=== PATIENT | male | born 1935 | race Caucasian/White ===

== ENCOUNTER 2021-10-19 14:59 | Inpatient (IN) | payer OTHER ==
[2021-10-19] MEDS ORDERED: SODIUM CHLORIDE 2,041 ML IV ONE (16:04)
[2021-10-19 16:53] LABS: BASO % 0.7 % (0-2.0); EOS % 5.2 % (0-4.5); HEMATOCRIT 28.4 % (35.4-49); HEMOGLOBIN 9.7 GM/dL (11.7-16.9); LYMPH % 25.1 % (8-40); MCH 32.2 pg (25.7-33.7); MCHC 34.1 g/dl (32.0-35.9); MEAN CELL VOLUME 94.4 fl (80-96); MEAN PLT VOLUME 8.7 fl (7.5-11.1); MONO % 8.2 % (3.8-10.2); NEUT % 60.8 % (42.8-82.8); PLATELET COUNT 222 10^3/uL (134-434); RDW 14.8 % (11.9-15.9); WHITE BLOOD COUNT 3.7 K/mm3 (4.0-10.0)
[2021-10-19 17:14] LABS: BLOOD UREA NITROGEN 19.1 mg/dL (7-18); CALCIUM 8.5 mg/dL (8.5-10.1)
[2021-10-19 17:18] LABS: CREATININE 1.2 mg/dL (0.55-1.3)
[2021-10-19 17:19] LABS: BILIRUBIN,TOTAL 0.5 mg/dL (0.2-1); TOT PROT 7.1 g/dl (6.4-8.2)
[2021-10-19 17:49] LABS: PH,URINE 5.5 (5.0-8.0); URINE APPEARANCE CLEAR; URINE BILIRUBIN NEGATIVE (NEGATIVE); URINE COLOR YELLOW; URINE GLUCOSE (UA) NEGATIVE (NEGATIVE); URINE KETONE NEGATIVE (NEGATIVE); URINE LEUK ESTERASE NEGATIVE (NEGATIVE); URINE NITRITE NEGATIVE (NEGATIVE); URINE PROTEIN NEGATIVE (NEGATIVE); URINE UROBILINOGEN 0.2 mg/dL (0.2-1.0)
[2021-10-19] MEDS ORDERED: IPRATROPIUM/ALBUTEROL (COMBIVENT) RESPIMAT 20-100 MCG IH PRN (21:45)
[2021-10-19] MEDS ORDERED: levETIRAcetam XR 750 MG TAB PO SCH (22:00)
[2021-10-19] MEDS ORDERED: ATORVASTATIN CA 40 MG TABLET (FP) ONE (23:43)
[2021-10-19] MEDS ORDERED: QUEtiapine FUMARATE 25 MG TABLET ONE (23:43)
[2021-10-20] MEDS: ATORVASTATIN CA 40 MG TABLET (FP) PO SCH (00:30)
[2021-10-20] MEDS: QUEtiapine FUMARATE 25 MG TABLET PO SCH ×2 (00:31→10:15)
[2021-10-20] MEDS ORDERED: levETIRAcetam 500 MG/5 ML INJECTION VIAL IVPB ONE ×3 (01:12→09:33)
[2021-10-20] MEDS ORDERED: HEPARIN NA (PORCINE) 5,000 UNITS/ML 1ML VIAL ONE (05:36)
[2021-10-20] MEDS: HEPARIN NA (PORCINE) 5,000 UNITS/ML 1ML VIAL SQ SCH ×2 (06:08→19:28)
[2021-10-20] MEDS ORDERED: TAMSULOSIN HCL 0.4 MG CAP ONE (08:07)
[2021-10-20 08:15] LABS: BASO % 0.6 % (0-2.0); HEMATOCRIT 30.7 % (35.4-49); HEMOGLOBIN 10.3 GM/dL (11.7-16.9); LYMPH % 16.3 % (8-40); MCH 31.9 pg (25.7-33.7); MCHC 33.5 g/dl (32.0-35.9); MEAN CELL VOLUME 95.2 fl (80-96); MEAN PLT VOLUME 8.7 fl (7.5-11.1); MONO % 5.8 % (3.8-10.2); NEUT % 74.3 % (42.8-82.8); PLATELET COUNT 245 10^3/uL (134-434); RBC 3.23 M/mm3 (4.00-5.60); WHITE BLOOD COUNT 5.2 K/mm3 (4.0-10.0)
[2021-10-20 08:21] LABS: INR 1.2 (0.83-1.09); PROTHROMBIN TIME (PATIENT) 13.8 SEC (9.7-13.0)
[2021-10-20 08:24] LABS: ACTIVATED PTT 33.8 SECONDS (25.2-36.5)
[2021-10-20] MEDS ORDERED: TAMSULOSIN HCL 0.4 MG CAP PO SCH (08:30)
[2021-10-20 08:31] LABS: BLOOD UREA NITROGEN 17.4 mg/dL (7-18)
[2021-10-20 08:34] LABS: CREATININE 1.2 mg/dL (0.55-1.3)
[2021-10-20] MEDS: levETIRAcetam 500 MG/5 ML INJECTION VIAL IVPB SCH (09:38)
[2021-10-20] MEDS ORDERED: QUEtiapine FUMARATE 25 MG TABLET ONE (09:51)
[2021-10-20] MEDS ORDERED: CITALOPRAM HYDROBROMIDE 10 MG TABLET ONE (09:51)
[2021-10-20] MEDS ORDERED: amLODIPine BESYLATE 5 MG TABLET (FP) ONE (09:51)
[2021-10-20] MEDS ORDERED: amLODIPine BESYLATE 5 MG TABLET (FP) PO SCH (10:00)
[2021-10-20] MEDS ORDERED: CITALOPRAM HYDROBROMIDE 10 MG TABLET PO SCH (10:00)
[2021-10-20] MEDS ORDERED: FINASTERIDE 5 MG TABLET (FP) PO SCH (10:00)
[2021-10-21] MEDS ORDERED: ATORVASTATIN CA 20 MG TABLET (FP) ONE (00:30)
[2021-10-21] MEDS ORDERED: levETIRAcetam 500 MG/5 ML INJECTION VIAL IVPB ONE (00:30)
[2021-10-21] MEDS ORDERED: HEPARIN NA (PORCINE) 5,000 UNITS/ML 1ML VIAL ONE (00:31)
[2021-10-21] MEDS ORDERED: QUEtiapine FUMARATE 25 MG TABLET ONE (00:31)
[2021-10-21] MEDS: ATORVASTATIN CA 40 MG TABLET (FP) PO SCH ×2 (00:45→22:02)
[2021-10-21] MEDS: HEPARIN NA (PORCINE) 5,000 UNITS/ML 1ML VIAL SQ SCH ×4 (00:45→22:02)
[2021-10-21] MEDS: levETIRAcetam 500 MG/5 ML INJECTION VIAL IVPB SCH (00:45)
[2021-10-21] MEDS: QUEtiapine FUMARATE 25 MG TABLET PO SCH ×3 (00:46→22:02)
[2021-10-21 02:53] VITALS: BMI 21.3
[2021-10-21] MEDS ORDERED: IPRATROPIUM/ALBUTEROL (COMBIVENT) RESPIMAT 20-100 MCG IH PRN (07:29)
[2021-10-21] MEDS ORDERED: levETIRAcetam 500 MG/5 ML INJECTION VIAL IVPB SCH (10:00)
[2021-10-21] MEDS: TAMSULOSIN HCL 0.4 MG CAP PO SCH (10:52)
[2021-10-21] MEDS: CITALOPRAM HYDROBROMIDE 10 MG TABLET PO SCH (10:52)
[2021-10-21] MEDS: amLODIPine BESYLATE 5 MG TABLET (FP) PO SCH (10:52)
[2021-10-21] MEDS: FINASTERIDE 5 MG TABLET (FP) PO SCH (10:52)
[2021-10-21] MEDS: levETIRAcetam 500 MG/5 ML ORAL SOLUTION (UNIT-DOSE CUPS) PO SCH (22:02)
[2021-10-22] MEDS: HEPARIN NA (PORCINE) 5,000 UNITS/ML 1ML VIAL SQ SCH ×3 (05:49→21:57)
[2021-10-22] MEDS: QUEtiapine FUMARATE 25 MG TABLET PO SCH ×2 (10:07→21:58)
[2021-10-22] MEDS: amLODIPine BESYLATE 5 MG TABLET (FP) PO SCH (10:07)
[2021-10-22] MEDS: FINASTERIDE 5 MG TABLET (FP) PO SCH (10:07)
[2021-10-22] MEDS: TAMSULOSIN HCL 0.4 MG CAP PO SCH (10:07)
[2021-10-22] MEDS: levETIRAcetam 500 MG/5 ML ORAL SOLUTION (UNIT-DOSE CUPS) PO SCH ×2 (10:08→21:56)
[2021-10-22] MEDS: CITALOPRAM HYDROBROMIDE 10 MG TABLET PO SCH (10:08)
[2021-10-22] MEDS: ATORVASTATIN CA 40 MG TABLET (FP) PO SCH (21:58)
[2021-10-23] MEDS: HEPARIN NA (PORCINE) 5,000 UNITS/ML 1ML VIAL SQ SCH ×3 (06:48→23:06)
[2021-10-23] MEDS: TAMSULOSIN HCL 0.4 MG CAP PO SCH (10:40)
[2021-10-23] MEDS: QUEtiapine FUMARATE 25 MG TABLET PO SCH ×2 (10:40→23:06)
[2021-10-23] MEDS: amLODIPine BESYLATE 5 MG TABLET (FP) PO SCH (10:40)
[2021-10-23] MEDS: levETIRAcetam 500 MG/5 ML ORAL SOLUTION (UNIT-DOSE CUPS) PO SCH ×2 (10:40→23:06)
[2021-10-23] MEDS: FINASTERIDE 5 MG TABLET (FP) PO SCH (10:40)
[2021-10-23] MEDS: CITALOPRAM HYDROBROMIDE 10 MG TABLET PO SCH (10:40)
[2021-10-23] MEDS: ATORVASTATIN CA 40 MG TABLET (FP) PO SCH (23:06)
[2021-10-24] MEDS: HEPARIN NA (PORCINE) 5,000 UNITS/ML 1ML VIAL SQ SCH (06:58)
[2021-10-24 10:30] VITALS: BP 101/72; PULSE 96; TEMP 98.4
[2021-10-24] MEDS: FINASTERIDE 5 MG TABLET (FP) PO SCH (10:31)
[2021-10-24] MEDS: levETIRAcetam 500 MG/5 ML ORAL SOLUTION (UNIT-DOSE CUPS) PO SCH (10:31)
[2021-10-24] MEDS: amLODIPine BESYLATE 5 MG TABLET (FP) PO SCH (10:31)
[2021-10-24] MEDS: QUEtiapine FUMARATE 25 MG TABLET PO SCH (10:31)
[2021-10-24] MEDS: CITALOPRAM HYDROBROMIDE 10 MG TABLET PO SCH (10:31)
[2021-10-24] MEDS: TAMSULOSIN HCL 0.4 MG CAP PO SCH (10:31)
== END 2021-10-24 11:01 | DRG 309 ==
LOC: JER 14:59 → JERBED 19:36 → J8W 10-21 01:08
PROVIDERS: ADMIT Internal Medicine; ATTEND Internal Medicine
DX: R00.1 Bradycardia, unspecified (principal); I69.351 Hemiplegia and hemiparesis following cerebral infarction affecting right dominant side; R41.82 Altered mental status, unspecified; F03.90 Unspecified dementia, unspecified severity, without behavioral disturbance, psychotic disturbance, mood disturbance, and anxiety; N18.30 Chronic kidney disease, stage 3 unspecified; E78.5 Hyperlipidemia, unspecified; K21.9 Gastro-esophageal reflux disease without esophagitis; I12.9 Hypertensive chronic kidney disease with stage 1 through stage 4 chronic kidney disease, or unspecified chronic kidney disease
CPT/HCPCS: 0241U-QW; 36415; 70450-TC; 71045-TC-FY; 72125-TC; 80048; 80053; 80177; 81003; 82550; 82553; 82962; 83605; 84443; 84484; 85025; 85610; 85730; 87040; 87086; 93005; 93010; 93225; 93226; 93306-TC; 99285-25; C9803-CS; J1644; J3535; U0003; U0005

== ENCOUNTER 2021-11-03 18:09 | Inpatient (IN) | payer OTHER ==
[2021-11-03 19:13] VITALS: BMI 23.1
[2021-11-03 21:01] LABS: BASO % 0.4 % (0-2.0); EOS % 2.2 % (0-4.5); HEMATOCRIT 33.4 % (35.4-49); HEMOGLOBIN 11.1 GM/dL (11.7-16.9); LYMPH % 11.2 % (8-40); MCH 31.4 pg (25.7-33.7); MCHC 33.3 g/dl (32.0-35.9); MEAN CELL VOLUME 94.2 fl (80-96); MEAN PLT VOLUME 9.2 fl (7.5-11.1); MONO % 7.6 % (3.8-10.2); NEUT % 78.6 % (42.8-82.8); PLATELET COUNT 210 10^3/uL (134-434); RBC 3.54 M/mm3 (4.00-5.60); WHITE BLOOD COUNT 5.8 K/mm3 (4.0-10.0)
[2021-11-03 21:08] LABS: INR 1.15 (0.83-1.09); PROTHROMBIN TIME (PATIENT) 13.2 SEC (9.7-13.0)
[2021-11-03 21:11] LABS: ACTIVATED PTT 31.1 SECONDS (25.2-36.5)
[2021-11-03 21:13] LABS: CALCIUM 8.9 mg/dL (8.5-10.1)
[2021-11-03 21:14] LABS: ALBUMIN 3.1 g/dl (3.4-5.0); BLOOD UREA NITROGEN 31.4 mg/dL (7-18)
[2021-11-03 21:17] LABS: CREATININE 1.4 mg/dL (0.55-1.3)
[2021-11-03 21:18] LABS: BILIRUBIN,TOTAL 0.7 mg/dL (0.2-1); TOT PROT 7.7 g/dl (6.4-8.2)
[2021-11-03 22:04] LABS: URINE APPEARANCE CLEAR; URINE BILIRUBIN NEGATIVE (NEGATIVE); URINE COLOR YELLOW; URINE GLUCOSE (UA) NEGATIVE (NEGATIVE); URINE KETONE NEGATIVE (NEGATIVE); URINE LEUK ESTERASE NEGATIVE (NEGATIVE); URINE NITRITE NEGATIVE (NEGATIVE); URINE PROTEIN NEGATIVE (NEGATIVE)
[2021-11-04 09:04] LABS: BASO % 0.9 % (0-2.0); EOS % 2.4 % (0-4.5); HEMOGLOBIN 9.8 GM/dL (11.7-16.9); LYMPH % 18.2 % (8-40); MCH 31.7 pg (25.7-33.7); MCHC 33.8 g/dl (32.0-35.9); MEAN CELL VOLUME 93.9 fl (80-96); MEAN PLT VOLUME 9.4 fl (7.5-11.1); MONO % 10.6 % (3.8-10.2); NEUT % 67.9 % (42.8-82.8); PLATELET COUNT 210 10^3/uL (134-434); RBC 3.08 M/mm3 (4.00-5.60); RDW 14.8 % (11.9-15.9); WHITE BLOOD COUNT 4.7 K/mm3 (4.0-10.0)
[2021-11-04 09:32] LABS: BLOOD UREA NITROGEN 29.6 mg/dL (7-18)
[2021-11-04] MEDS: PANTOPRAZOLE 40 MG TABLET PO SCH (09:32)
[2021-11-04] MEDS: QUEtiapine FUMARATE 25 MG TABLET PO SCH ×2 (09:32→22:03)
[2021-11-04] MEDS: FINASTERIDE 5 MG TABLET (FP) PO SCH (09:32)
[2021-11-04] MEDS: ASPIRIN 81 MG CHEWABLE TABLETS PO SCH (09:32)
[2021-11-04] MEDS: TAMSULOSIN HCL 0.4 MG CAP PO SCH (09:32)
[2021-11-04] MEDS: amLODIPine BESYLATE 5 MG TABLET (FP) PO SCH (09:32)
[2021-11-04 09:34] LABS: BILIRUBIN,TOTAL 0.6 mg/dL (0.2-1)
[2021-11-04 09:35] LABS: ALBUMIN 3.2 g/dl (3.4-5.0); CREATININE 1.3 mg/dL (0.55-1.3)
[2021-11-04 09:36] LABS: TOT PROT 7.2 g/dl (6.4-8.2)
[2021-11-04] MEDS ORDERED: levETIRAcetam XR 750 MG TAB PO SCH (10:00)
[2021-11-04] MEDS: levETIRAcetam 500 MG/5 ML ORAL SOLUTION (UNIT-DOSE CUPS) PO SCH ×2 (10:39→22:02)
[2021-11-04] MEDS ORDERED: MELATONIN 1 MG TABLET PO PRN (22:00)
[2021-11-04] MEDS: ATORVASTATIN CA 40 MG TABLET (FP) PO SCH (22:09)
[2021-11-05] MEDS: PANTOPRAZOLE 40 MG TABLET PO SCH (09:23)
[2021-11-05] MEDS: FINASTERIDE 5 MG TABLET (FP) PO SCH (09:23)
[2021-11-05] MEDS: QUEtiapine FUMARATE 25 MG TABLET PO SCH ×2 (09:23→21:51)
[2021-11-05] MEDS: levETIRAcetam 500 MG/5 ML ORAL SOLUTION (UNIT-DOSE CUPS) PO SCH ×2 (09:23→21:51)
[2021-11-05] MEDS: ASPIRIN 81 MG CHEWABLE TABLETS PO SCH (09:23)
[2021-11-05] MEDS: TAMSULOSIN HCL 0.4 MG CAP PO SCH (09:23)
[2021-11-05] MEDS: amLODIPine BESYLATE 5 MG TABLET (FP) PO SCH (09:29)
[2021-11-05] MEDS ORDERED: DEXTROSE 5%-WATER - 50 ML IVPB ONE ×3 (09:30→20:20)
[2021-11-05] MEDS ORDERED: cefTRIAXone SODIUM 1 GM VIAL ONE (09:30)
[2021-11-05] MEDS ORDERED: CEFTRIAXONE 1 GM in DEXTROSE 5%-WATER - 50 ML IVPB ONE (09:30)
[2021-11-05] MEDS ORDERED: VANCOMYCIN 1 GM/200 ML PREMIX BAG IVPB ONE (16:42)
[2021-11-05] MEDS ORDERED: PIPERACILLIN/TAZOBACTAM 2.25 GM VIAL IVPB ONE ×2 (17:17→20:20)
[2021-11-05] MEDS: PIPERACILLIN/TAZOB 2.25 GM 2.25 GM in DEXTROSE 5%-WATER - 50 ML IVPB SCH ×2 (17:20→21:52)
[2021-11-05 17:23] LABS: BASO % 0.4 % (0-2.0); HEMATOCRIT 30.2 % (35.4-49); HEMOGLOBIN 10.3 GM/dL (11.7-16.9); MCHC 34.2 g/dl (32.0-35.9); MEAN CELL VOLUME 93.8 fl (80-96); MEAN PLT VOLUME 8.9 fl (7.5-11.1); MONO % 8.6 % (3.8-10.2); PLATELET COUNT 230 10^3/uL (134-434); RBC 3.22 M/mm3 (4.00-5.60); RDW 14.2 % (11.9-15.9); WHITE BLOOD COUNT 6.2 K/mm3 (4.0-10.0)
[2021-11-05 17:48] LABS: ALBUMIN 3.2 g/dl (3.4-5.0); BLOOD UREA NITROGEN 33.9 mg/dL (7-18); CALCIUM 8.7 mg/dL (8.5-10.1)
[2021-11-05 17:51] LABS: CREATININE 1.7 mg/dL (0.55-1.3)
[2021-11-05 17:53] LABS: BILIRUBIN,TOTAL 0.6 mg/dL (0.2-1)
[2021-11-05] MEDS: SODIUM CHLORIDE 0.45% 1,000 ML IV SCH (21:00)
[2021-11-05] MEDS: ATORVASTATIN CA 40 MG TABLET (FP) PO SCH (21:51)
[2021-11-06] MEDS ORDERED: DEXTROSE 5%-WATER - 50 ML IVPB ONE ×4 (04:01→21:34)
[2021-11-06] MEDS ORDERED: PIPERACILLIN/TAZOBACTAM 2.25 GM VIAL IVPB ONE ×4 (04:01→21:34)
[2021-11-06] MEDS: PIPERACILLIN/TAZOB 2.25 GM 2.25 GM in DEXTROSE 5%-WATER - 50 ML IVPB SCH ×4 (04:03→21:36)
[2021-11-06 07:24] LABS: CALCIUM 8.3 mg/dL (8.5-10.1)
[2021-11-06 07:25] LABS: ALBUMIN 2.6 g/dl (3.4-5.0); BLOOD UREA NITROGEN 37.8 mg/dL (7-18)
[2021-11-06 07:28] LABS: BASO % 0.5 % (0-2.0); EOS % 0.3 % (0-4.5); HEMOGLOBIN 9.2 GM/dL (11.7-16.9); MCH 31.8 pg (25.7-33.7); MCHC 34.1 g/dl (32.0-35.9); MEAN CELL VOLUME 93.5 fl (80-96); MEAN PLT VOLUME 9.2 fl (7.5-11.1); MONO % 9.3 % (3.8-10.2); NEUT % 77.9 % (42.8-82.8); PLATELET COUNT 201 10^3/uL (134-434); RBC 2.89 M/mm3 (4.00-5.60); RDW 14.3 % (11.9-15.9)
[2021-11-06 07:29] LABS: BILIRUBIN,TOTAL 0.7 mg/dL (0.2-1)
[2021-11-06 07:30] LABS: TOT PROT 6.9 g/dl (6.4-8.2)
[2021-11-06] MEDS: ASPIRIN 81 MG CHEWABLE TABLETS PO SCH (09:02)
[2021-11-06] MEDS: TAMSULOSIN HCL 0.4 MG CAP PO SCH (09:02)
[2021-11-06] MEDS: levETIRAcetam 500 MG/5 ML ORAL SOLUTION (UNIT-DOSE CUPS) PO SCH ×2 (09:02→21:37)
[2021-11-06] MEDS: amLODIPine BESYLATE 5 MG TABLET (FP) PO SCH (09:02)
[2021-11-06] MEDS: FINASTERIDE 5 MG TABLET (FP) PO SCH (09:02)
[2021-11-06] MEDS: QUEtiapine FUMARATE 25 MG TABLET PO SCH ×2 (09:03→21:37)
[2021-11-06] MEDS: PANTOPRAZOLE 40 MG TABLET PO SCH (09:03)
[2021-11-06] MEDS ORDERED: ACETAMINOPHEN 1000 MG/100 ML BAG IVPB PRN (12:19)
[2021-11-06] MEDS ORDERED: ACETAMINOPHEN 500 MG TABLET (FP) PO PRN (12:19)
[2021-11-06] MEDS: SODIUM CHLORIDE 0.45% 1,000 ML IV SCH ×2 (14:59→18:28)
[2021-11-06 17:41] LABS: CALCIUM 8.4 mg/dL (8.5-10.1)
[2021-11-06 17:42] LABS: ALBUMIN 2.6 g/dl (3.4-5.0)
[2021-11-06 17:45] LABS: CREATININE 1.7 mg/dL (0.55-1.3)
[2021-11-06 17:47] LABS: BILIRUBIN,TOTAL 0.4 mg/dL (0.2-1); TOT PROT 6.6 g/dl (6.4-8.2)
[2021-11-06] MEDS ORDERED: PIPERACILLIN/TAZOB 2.25 GM 2.25 GM in DEXTROSE 5%-WATER - 50 ML IVPB SCH (21:00)
[2021-11-06] MEDS: ATORVASTATIN CA 40 MG TABLET (FP) PO SCH (21:37)
[2021-11-07] MEDS ORDERED: DEXTROSE 5%-WATER - 50 ML IVPB ONE ×2 (01:57→08:33)
[2021-11-07] MEDS ORDERED: PIPERACILLIN/TAZOBACTAM 2.25 GM VIAL IVPB ONE ×2 (01:57→08:33)
[2021-11-07] MEDS: PIPERACILLIN/TAZOB 2.25 GM 2.25 GM in DEXTROSE 5%-WATER - 50 ML IVPB SCH ×3 (02:36→14:04)
[2021-11-07] MEDS: SODIUM CHLORIDE 0.45% 1,000 ML IV SCH ×2 (02:39→16:00)
[2021-11-07 06:50] LABS: BASO % 0.6 % (0-2.0); EOS % 4.3 % (0-4.5); HEMOGLOBIN 8.7 GM/dL (11.7-16.9); LYMPH % 13.4 % (8-40); MCH 32.5 pg (25.7-33.7); MCHC 34.9 g/dl (32.0-35.9); MEAN CELL VOLUME 93.2 fl (80-96); MEAN PLT VOLUME 8.8 fl (7.5-11.1); NEUT % 72.7 % (42.8-82.8); PLATELET COUNT 178 10^3/uL (134-434); RBC 2.69 M/mm3 (4.00-5.60); RDW 14.1 % (11.9-15.9); WHITE BLOOD COUNT 6.9 K/mm3 (4.0-10.0)
[2021-11-07] MEDS: FINASTERIDE 5 MG TABLET (FP) PO SCH (09:15)
[2021-11-07] MEDS: QUEtiapine FUMARATE 25 MG TABLET PO SCH ×2 (09:15→22:40)
[2021-11-07] MEDS: PANTOPRAZOLE 40 MG TABLET PO SCH (09:15)
[2021-11-07] MEDS: amLODIPine BESYLATE 5 MG TABLET (FP) PO SCH (09:15)
[2021-11-07] MEDS: ASPIRIN 81 MG CHEWABLE TABLETS PO SCH (09:15)
[2021-11-07] MEDS: TAMSULOSIN HCL 0.4 MG CAP PO SCH (09:15)
[2021-11-07] MEDS: levETIRAcetam 500 MG/5 ML ORAL SOLUTION (UNIT-DOSE CUPS) PO SCH ×2 (09:18→22:40)
[2021-11-07] MEDS: MULTIVITAMINS (DAILY MVI) TABLET (FP) PO SCH (09:45)
[2021-11-07] MEDS ORDERED: LORazepam 2 MG/ML SDV VIAL IVPUSH ONE ×2 (11:10→20:30)
[2021-11-07] MEDS: ATORVASTATIN CA 40 MG TABLET (FP) PO SCH (22:39)
[2021-11-08] MEDS: SODIUM CHLORIDE 0.45% 1,000 ML IV SCH (06:50)
[2021-11-08] MEDS: MULTIVITAMINS (DAILY MVI) TABLET (FP) PO SCH (09:42)
[2021-11-08] MEDS: TAMSULOSIN HCL 0.4 MG CAP PO SCH (09:42)
[2021-11-08] MEDS: amLODIPine BESYLATE 5 MG TABLET (FP) PO SCH (09:42)
[2021-11-08] MEDS: ASPIRIN 81 MG CHEWABLE TABLETS PO SCH (09:42)
[2021-11-08] MEDS: FINASTERIDE 5 MG TABLET (FP) PO SCH (09:42)
[2021-11-08] MEDS: QUEtiapine FUMARATE 25 MG TABLET PO SCH (09:42)
[2021-11-08] MEDS: levETIRAcetam 500 MG/5 ML ORAL SOLUTION (UNIT-DOSE CUPS) PO SCH (10:05)
[2021-11-08 15:01] VITALS: BP 137/78; PULSE 99; RESP 16; TEMP 98.2
== END 2021-11-08 17:38 | DRG 69 ==
LOC: JER 18:09 → JERBED 22:52 → J4W 11-04 03:42 → OBSVTOIN 11-06 11:41
PROVIDERS: ADMIT Internal Medicine; ATTEND Internal Medicine
DX: G45.9 Transient cerebral ischemic attack, unspecified (principal); G93.41 Metabolic encephalopathy; R53.2 Functional quadriplegia; N17.9 Acute kidney failure, unspecified; I12.9 Hypertensive chronic kidney disease with stage 1 through stage 4 chronic kidney disease, or unspecified chronic kidney disease; N18.9 Chronic kidney disease, unspecified; Z66 Do not resuscitate; G40.909 Epilepsy, unspecified, not intractable, without status epilepticus; Z86.718 Personal history of other venous thrombosis and embolism; F03.90 Unspecified dementia, unspecified severity, without behavioral disturbance, psychotic disturbance, mood disturbance, and anxiety; K21.9 Gastro-esophageal reflux disease without esophagitis; N40.0 Benign prostatic hyperplasia without lower urinary tract symptoms; N48.1 Balanitis; F32.A Depression, unspecified; F41.9 Anxiety disorder, unspecified; R50.9 Fever, unspecified; G93.89 Other specified disorders of brain
CPT/HCPCS: 0241U-QW; 36415; 70450-TC; 70551-TC; 71045-TC-FY; 80053; 80061; 80177; 81003; 83036; 84484; 85025; 85610; 85730; 86850; 86900; 86901; 87040; 87086; 93005; 93010; 97162-GP; 99285-25; G0378

== ENCOUNTER 2021-12-21 17:18 | Inpatient (IN) | payer OTHER ==
[2021-12-21 19:30] LABS: EOS % 4.6 % (0-4.5); HEMATOCRIT 32.7 % (35.4-49); HEMOGLOBIN 11.5 GM/dL (11.7-16.9); LYMPH % 16.8 % (8-40); MCH 32.8 pg (25.7-33.7); MCHC 35.2 g/dl (32.0-35.9); MEAN CELL VOLUME 93.4 fl (80-96); MEAN PLT VOLUME 8.9 fl (7.5-11.1); MONO % 7.7 % (3.8-10.2); NEUT % 69.9 % (42.8-82.8); PLATELET COUNT 209 10^3/uL (134-434); RDW 13.7 % (11.9-15.9); WHITE BLOOD COUNT 5.3 K/mm3 (4.0-10.0)
[2021-12-21 19:52] LABS: ACTIVATED PTT 33.5 SECONDS (25.2-36.5); INR 1.15 (0.83-1.09); PROTHROMBIN TIME (PATIENT) 13.3 SEC (9.7-13.0)
[2021-12-21 20:00] LABS: ALBUMIN 3.4 g/dl (3.4-5.0); BLOOD UREA NITROGEN 32.3 mg/dL (7-18); CALCIUM 8.8 mg/dL (8.5-10.1)
[2021-12-21 20:03] LABS: CREATININE 1.2 mg/dL (0.55-1.3)
[2021-12-21 20:05] LABS: TOT PROT 7.8 g/dl (6.4-8.2)
[2021-12-21 20:09] LABS: BILIRUBIN,TOTAL 0.3 mg/dL (0.2-1)
[2021-12-21 22:55] LABS: EPI CELLS 8 /uL (0-25.1); HYALINE CASTS 1 /uL (0-3.1); URINE APPEARANCE CLOUDY; URINE BILIRUBIN NEGATIVE (NEGATIVE); URINE COLOR YELLOW; URINE GLUCOSE (UA) NEGATIVE (NEGATIVE); URINE KETONE NEGATIVE (NEGATIVE); URINE LEUK ESTERASE 3+ (NEGATIVE); URINE NITRITE POSITIVE (NEGATIVE); URINE PROTEIN TRACE (NEGATIVE); URINE RBC 37 /uL (0-23.9); URINE WBC 1242 /uL (0-25.8)
[2021-12-21] MEDS ORDERED: CEFTRIAXONE 1 GM in DEXTROSE 5%-WATER - 50 ML IVPB ONE (23:29)
[2021-12-21 23:31] LABS: URINE BACTERIA 979.6 /uL (0-1359)
[2021-12-22] MEDS ORDERED: CEFTRIAXONE 1 GM/50 ML BAG ONE (00:56)
[2021-12-22 08:17] LABS: BASO % 0.9 % (0-2.0); EOS % 4.1 % (0-4.5); HEMATOCRIT 36.9 % (35.4-49); HEMOGLOBIN 12.3 GM/dL (11.7-16.9); LYMPH % 17.9 % (8-40); MCH 31.1 pg (25.7-33.7); MCHC 33.2 g/dl (32.0-35.9); MEAN CELL VOLUME 93.5 fl (80-96); MEAN PLT VOLUME 8.9 fl (7.5-11.1); MONO % 6.8 % (3.8-10.2); NEUT % 70.3 % (42.8-82.8); PLATELET COUNT 221 10^3/uL (134-434); RBC 3.95 M/mm3 (4.00-5.60); RDW 14.2 % (11.9-15.9); WHITE BLOOD COUNT 5.3 K/mm3 (4.0-10.0)
[2021-12-22 08:56] LABS: ALBUMIN 3.7 g/dl (3.4-5.0); BLOOD UREA NITROGEN 25.7 mg/dL (7-18); CALCIUM 9.3 mg/dL (8.5-10.1)
[2021-12-22 09:01] LABS: BILIRUBIN,TOTAL 0.4 mg/dL (0.2-1); TOT PROT 8.6 g/dl (6.4-8.2)
[2021-12-22] MEDS ORDERED: QUEtiapine FUMARATE 25 MG TABLET ONE (09:45)
[2021-12-22] MEDS: FINASTERIDE 5 MG TABLET (FP) PO SCH (09:55)
[2021-12-22] MEDS: levETIRAcetam 500 MG/5 ML ORAL SOLUTION (UNIT-DOSE CUPS) PO SCH ×2 (09:55→22:39)
[2021-12-22] MEDS: QUEtiapine FUMARATE 25 MG TABLET PO SCH ×2 (09:55→21:41)
[2021-12-22] MEDS: CEFTRIAXONE 1 GM in DEXTROSE 5%-WATER - 50 ML IVPB SCH (09:59)
[2021-12-22] MEDS: amLODIPine BESYLATE 5 MG TABLET (FP) PO SCH (11:09)
[2021-12-22] MEDS ORDERED: HEPARIN NA (PORCINE) 5,000 UNITS/ML 1ML VIAL ONE (14:21)
[2021-12-22] MEDS: HEPARIN NA (PORCINE) 5,000 UNITS/ML 1ML VIAL SQ SCH ×2 (14:26→21:41)
[2021-12-22] MEDS ORDERED: TAMSULOSIN HCL 0.4 MG CAP ONE (17:24)
[2021-12-22] MEDS: TAMSULOSIN HCL 0.4 MG CAP PO SCH (17:27)
[2021-12-22] MEDS: ATORVASTATIN CA 40 MG TABLET (FP) PO SCH (21:41)
[2021-12-23] MEDS: CEFTRIAXONE 1 GM in DEXTROSE 5%-WATER - 50 ML IVPB SCH (09:21)
[2021-12-23] MEDS: levETIRAcetam 500 MG/5 ML ORAL SOLUTION (UNIT-DOSE CUPS) PO SCH ×2 (09:22→21:47)
[2021-12-23] MEDS: HEPARIN NA (PORCINE) 5,000 UNITS/ML 1ML VIAL SQ SCH ×2 (09:22→21:47)
[2021-12-23] MEDS: FINASTERIDE 5 MG TABLET (FP) PO SCH (09:23)
[2021-12-23] MEDS: QUEtiapine FUMARATE 25 MG TABLET PO SCH ×2 (09:23→21:47)
[2021-12-23] MEDS: amLODIPine BESYLATE 5 MG TABLET (FP) PO SCH (09:25)
[2021-12-23] MEDS: TAMSULOSIN HCL 0.4 MG CAP PO SCH (17:42)
[2021-12-23] MEDS ORDERED: ACETAMINOPHEN 1000 MG/100 ML BAG IVPB ONE (18:27)
[2021-12-23] MEDS: ATORVASTATIN CA 40 MG TABLET (FP) PO SCH (21:47)
[2021-12-24] MEDS: HEPARIN NA (PORCINE) 5,000 UNITS/ML 1ML VIAL SQ SCH ×2 (10:26→22:03)
[2021-12-24] MEDS: amLODIPine BESYLATE 5 MG TABLET (FP) PO SCH (10:27)
[2021-12-24] MEDS: QUEtiapine FUMARATE 25 MG TABLET PO SCH ×2 (10:27→22:03)
[2021-12-24] MEDS: FINASTERIDE 5 MG TABLET (FP) PO SCH (10:27)
[2021-12-24] MEDS: CEFTRIAXONE 1 GM in DEXTROSE 5%-WATER - 50 ML IVPB SCH (10:27)
[2021-12-24] MEDS: levETIRAcetam 500 MG/5 ML ORAL SOLUTION (UNIT-DOSE CUPS) PO SCH ×2 (10:36→22:04)
[2021-12-24] MEDS: ACETAMINOPHEN 325 MG TABLET (FP) PO PRN (16:16)
[2021-12-24] MEDS: TAMSULOSIN HCL 0.4 MG CAP PO SCH (17:39)
[2021-12-24] MEDS: ATORVASTATIN CA 40 MG TABLET (FP) PO SCH (22:04)
[2021-12-25] MEDS: ACETAMINOPHEN 325 MG TABLET (FP) PO PRN (02:13)
[2021-12-25] MEDS: QUEtiapine FUMARATE 25 MG TABLET PO SCH (09:52)
[2021-12-25] MEDS: HEPARIN NA (PORCINE) 5,000 UNITS/ML 1ML VIAL SQ SCH ×2 (09:52→16:28)
[2021-12-25] MEDS: FINASTERIDE 5 MG TABLET (FP) PO SCH (09:52)
[2021-12-25] MEDS: levETIRAcetam 500 MG/5 ML ORAL SOLUTION (UNIT-DOSE CUPS) PO SCH (09:53)
[2021-12-25 16:14] VITALS: BMI 20.7
[2021-12-25] MEDS: TAMSULOSIN HCL 0.4 MG CAP PO SCH ×2 (16:18→17:57)
[2021-12-25 16:35] VITALS: BP 92/54; PULSE 73; RESP 20; TEMP 98.7
== END 2021-12-25 19:40 | DRG 690 ==
LOC: JER 17:18 → OBSVTOIN 21:49 → JERBED 21:49 → J4W 12-22 20:47
PROVIDERS: ADMIT Internal Medicine; ATTEND Internal Medicine
DX: N39.0 Urinary tract infection, site not specified (principal); F03.90 Unspecified dementia, unspecified severity, without behavioral disturbance, psychotic disturbance, mood disturbance, and anxiety; G40.909 Epilepsy, unspecified, not intractable, without status epilepticus; I12.9 Hypertensive chronic kidney disease with stage 1 through stage 4 chronic kidney disease, or unspecified chronic kidney disease; N18.9 Chronic kidney disease, unspecified; E78.5 Hyperlipidemia, unspecified
CPT/HCPCS: 0241U-QW; 36415; 70450-TC; 71046-TC-FY; 72125-TC; 80053; 81003; 84484; 85025; 85610; 85730; 86850; 86900; 86901; 87086; 87186; 93005; 93010; 99285-25; J1644

== ENCOUNTER 2023-05-10 11:35 | Inpatient (IN) | payer OTHER, BC ==
[2023-05-10] MEDS: SODIUM CHLORIDE IV ONE (13:20)
[2023-05-10 13:26] LABS: VENOUS BASE EXCESS -3.9 mmol/L (-2-2); VENOUS O2 SATURATION 34.5 % (70-80); VENOUS PCO2 36.9 mmHg (38-52); VENOUS PH 7.37 (7.310-7.410)
[2023-05-10 13:36] LABS: BASO % 0.2 % (0-2.0); HEMATOCRIT 29.2 % (35.4-49); HEMOGLOBIN 9.7 GM/dL (11.7-16.9); LYMPH % 6.4 % (8-40); MCH 31.4 pg (25.7-33.7); MCHC 33.4 g/dl (32.0-35.9); MEAN CELL VOLUME 94.1 fl (80-96); MEAN PLT VOLUME 9.8 fl (7.5-11.1); MONO % 6.5 % (3.8-10.2); NEUT % 86.9 % (42.8-82.8); PLATELET COUNT 211 10^3/uL (134-434); RDW 14.4 % (11.9-15.9); WHITE BLOOD COUNT 8.6 K/mm3 (4.0-10.0)
[2023-05-10 13:43] LABS: INR 1.3 (0.83-1.09)
[2023-05-10 14:13] LABS: POTASSIUM 3.8 mmol/L (3.5-5.1)
[2023-05-10 14:15] LABS: ALBUMIN 2.8 g/dl (3.4-5.0)
[2023-05-10 14:16] LABS: CALCIUM 8.8 mg/dL (8.5-10.1)
[2023-05-10 14:17] LABS: EPI CELLS 9 /uL (0-25.1); HYALINE CASTS 1 /uL (0-3.1); PH,URINE 5.5 (5.0-8.0); URINE APPEARANCE TURBID; URINE BACTERIA >9,000 /uL (0-1359); URINE BILIRUBIN NEGATIVE (NEGATIVE); URINE COLOR YELLOW; URINE GLUCOSE (UA) NEGATIVE (NEGATIVE); URINE KETONE NEGATIVE (NEGATIVE); URINE LEUK ESTERASE 3+ (NEGATIVE); URINE NITRITE POSITIVE (NEGATIVE); URINE PROTEIN 2+ (NEGATIVE); URINE RBC 212 /uL (0-23.9); URINE UROBILINOGEN 0.2 mg/dL (0.2-1.0); URINE WBC 16089 /uL (0-25.8)
[2023-05-10 14:18] LABS: CREATININE 2.6 mg/dL (0.55-1.3)
[2023-05-10 14:20] LABS: BILIRUBIN,TOTAL 0.4 mg/dL (0.2-1); TOT PROT 7.8 g/dl (6.4-8.2)
[2023-05-10] MEDS: morphine CARPU-JECT 2 MG/1 ML DISP.SYRIN IVPUSH ONE (14:57)
[2023-05-10] MEDS ORDERED: LACTATED RINGERS SOLUTION 1,000 ML/1,000 ML INFUS.BAG IV SCH (15:45)
[2023-05-10] MEDS ORDERED: ACETAMINOPHEN INJECTION 100 ML IVPB ONE (15:48)
[2023-05-10] MEDS: ACETAMINOPHEN 1000 MG/100 ML BAG IVPB ONE (15:57)
[2023-05-10] MEDS: LACTATED RINGERS SOLUTION 1000 ML INFUS.BAG IV ONE (15:58)
[2023-05-10] MEDS ORDERED: PIPERACILLIN/TAZOB 4.5 GM 4.5 GM/100 ML BAG IVPB ONE (16:21)
[2023-05-10] MEDS: PIPERACILLIN/TAZOB 4.5 GM 4.5 GM in DEXTROSE 5%-WATER 100 ML IVPB ONE (16:25)
[2023-05-10] MEDS ORDERED: PATIENT'S OWN MEDICATION (NON-FORMULARY) (Ipratropium/Albuterol Sulfate 1 PUFF Inhaler) IH SCH (17:15)
[2023-05-10] MEDS: SODIUM CHLORIDE 1,000 ML IV SCH (20:30)
[2023-05-10] MEDS ORDERED: levETIRAcetam 500 MG TABLET (FP) PO SCH (22:00)
[2023-05-10] MEDS ORDERED: PATIENT'S OWN MEDICATION (NON-FORMULARY) (Melatonin [Melatonin] 3 MG Tablet) PO SCH (22:00)
[2023-05-10] MEDS: PIPERACILLIN/TAZOB 2.25 GM 2.25 GM in DEXTROSE 5%-WATER - 50 ML IVPB SCH (22:50)
[2023-05-10] MEDS: POLYETHYLENE GLYCOL (HEALTHYLAX) 3350 17 GM PACKET PO SCH (22:51)
[2023-05-10] MEDS: HEPARIN NA (PORCINE) 5,000 UNITS/ML 1ML VIAL SQ SCH (22:51)
[2023-05-10] MEDS: ATORVASTATIN CA 40 MG TABLET (FP) PO SCH (22:52)
[2023-05-10] MEDS: levETIRAcetam 500 MG TABLET (FP) PO SCH (22:52)
[2023-05-10] MEDS: MELATONIN 1 MG TABLET PO SCH (22:52)
[2023-05-10] MEDS: QUEtiapine FUMARATE 25 MG TABLET PO SCH (22:52)
[2023-05-11 01:15] VITALS: BMI 19.5
[2023-05-11] MEDS: levETIRAcetam XR 750 MG TAB PO SCH (06:00)
[2023-05-11] MEDS: QUEtiapine FUMARATE 25 MG TABLET PO SCH (06:08)
[2023-05-11 08:01] LABS: POTASSIUM 3.7 mmol/L (3.5-5.1)
[2023-05-11 08:03] LABS: BASO % 0.4 % (0-2.0); EOS % 0.1 % (0-4.5); HEMATOCRIT 25.1 % (35.4-49); HEMOGLOBIN 8.6 GM/dL (11.7-16.9); LYMPH % 6.6 % (8-40); MCH 32.1 pg (25.7-33.7); MCHC 34.2 g/dl (32.0-35.9); MEAN CELL VOLUME 93.9 fl (80-96); MEAN PLT VOLUME 10.3 fl (7.5-11.1); MONO % 9.4 % (3.8-10.2); NEUT % 83.5 % (42.8-82.8); PLATELET COUNT 175 10^3/uL (134-434); RBC 2.68 M/mm3 (4.00-5.60); RDW 14.9 % (11.9-15.9); WHITE BLOOD COUNT 7.7 K/mm3 (4.0-10.0)
[2023-05-11 08:08] LABS: ALBUMIN 2.2 g/dl (3.4-5.0); BLOOD UREA NITROGEN 66.4 mg/dL (7-18); CALCIUM 8.4 mg/dL (8.5-10.1); MAGNESIUM 2.2 mg/dL (1.8-2.4)
[2023-05-11 08:11] LABS: CREATININE 1.8 mg/dL (0.55-1.3); PHOSPHOROUS 3.8 mg/dL (2.5-4.9)
[2023-05-11 08:12] LABS: BILIRUBIN,TOTAL 0.4 mg/dL (0.2-1); TOT PROT 6.5 g/dl (6.4-8.2)
[2023-05-11] MEDS ORDERED: PATIENT'S OWN MEDICATION (NON-FORMULARY) (Ferrous Sulfate [Ferrous Sulfate] 325 MG Tablet) PO SCH (10:00)
[2023-05-11] MEDS ORDERED: FERROUS SO4 325 MG TABLET (FP) PO SCH (10:00)
[2023-05-11] MEDS ORDERED: amLODIPine BESYLATE 5 MG TABLET (FP) PO SCH (10:00)
[2023-05-11] MEDS: ACETAMINOPHEN 325 MG TABLET (FP) PO PRN (10:28)
[2023-05-11] MEDS: ASPIRIN 81 MG CHEWABLE TABLETS PO SCH (10:28)
[2023-05-11] MEDS: FINASTERIDE 5 MG TABLET (FP) PO SCH (10:28)
[2023-05-11] MEDS: PANTOPRAZOLE 40 MG TABLET PO SCH (10:28)
[2023-05-11] MEDS: PIPERACILLIN/TAZOB 3.375 GM 3.375 GM in DEXTROSE 5%-WATER - 50 ML IVPB SCH (10:28)
[2023-05-11] MEDS: DOCUSATE SODIUM 100 MG CAPSULE (FP) PO SCH (10:28)
[2023-05-11] MEDS ORDERED: ZINC OXIDE 20% TOPICAL OINTMENT 30 GM TUBE TP ONE (18:48)
[2023-05-11] MEDS: ZINC OXIDE 20% TOPICAL OINTMENT 30 GM TUBE TP SCH (21:10)
[2023-05-12 08:14] LABS: HEMATOCRIT 27.2 % (35.4-49); HEMOGLOBIN 9.2 GM/dL (11.7-16.9); MCH 31.9 pg (25.7-33.7); MCHC 33.7 g/dl (32.0-35.9); MEAN CELL VOLUME 94.9 fl (80-96); MEAN PLT VOLUME 9.7 fl (7.5-11.1); PLATELET COUNT 196 10^3/uL (134-434); RBC 2.87 M/mm3 (4.00-5.60); RDW 14.9 % (11.9-15.9); WHITE BLOOD COUNT 6.9 K/mm3 (4.0-10.0)
[2023-05-12 08:29] LABS: POTASSIUM 3.5 mmol/L (3.5-5.1)
[2023-05-12 08:40] LABS: BLOOD UREA NITROGEN 50.7 mg/dL (7-18); CALCIUM 8.1 mg/dL (8.5-10.1); MAGNESIUM 2.3 mg/dL (1.8-2.4)
[2023-05-12 08:44] LABS: CREATININE 1.6 mg/dL (0.55-1.3); PHOSPHOROUS 2.7 mg/dL (2.5-4.9)
[2023-05-12] MEDS: MEROPENEM 1 GM in DEXTROSE 5%-WATER 100 ML IVPB SCH (18:00)
[2023-05-12] MEDS ORDERED: MEROPENEM 500 MG in DEXTROSE 5%-WATER 100 ML IVPB SCH (18:00)
[2023-05-12] MEDS: DEXTROSE 5%-WATER - 1,000 ML IV SCH (18:34)
[2023-05-13 07:38] LABS: BASO % 0.4 % (0-2.0); HEMATOCRIT 27.6 % (35.4-49); HEMOGLOBIN 9.5 GM/dL (11.7-16.9); LYMPH % 15.1 % (8-40); MCHC 34.6 g/dl (32.0-35.9); MEAN CELL VOLUME 92.5 fl (80-96); MEAN PLT VOLUME 9.6 fl (7.5-11.1); MONO % 11.1 % (3.8-10.2); NEUT % 72.4 % (42.8-82.8); PLATELET COUNT 236 10^3/uL (134-434); RBC 2.98 M/mm3 (4.00-5.60); RDW 14.8 % (11.9-15.9); WHITE BLOOD COUNT 5.7 K/mm3 (4.0-10.0)
[2023-05-13 08:01] LABS: POTASSIUM 3.5 mmol/L (3.5-5.1)
[2023-05-13 08:16] LABS: CALCIUM 8.2 mg/dL (8.5-10.1)
[2023-05-13 08:18] LABS: BLOOD UREA NITROGEN 30.7 mg/dL (7-18)
[2023-05-13 08:22] LABS: CREATININE 1.2 mg/dL (0.55-1.3)
[2023-05-13] MEDS ORDERED: SODIUM CHLORIDE 0.45% 1,000 ML IV SCH (11:45)
[2023-05-13] MEDS: DEXTROSE 5%-WATER - 1,000 ML IV SCH (19:43)
[2023-05-13 23:49] VITALS: RESP 18
[2023-05-14] MEDS: BACITRACIN ZINC 15 GM TUBE TOPICAL OINTMENT TP ONE (04:05)
[2023-05-14 07:30] LABS: POTASSIUM 3.9 mmol/L (3.5-5.1)
[2023-05-14 07:42] LABS: BASO % 0.5 % (0-2.0); CALCIUM 7.8 mg/dL (8.5-10.1); EOS % 2.2 % (0-4.5); HEMATOCRIT 25.6 % (35.4-49); HEMOGLOBIN 8.8 GM/dL (11.7-16.9); LYMPH % 22.6 % (8-40); MCH 31.6 pg (25.7-33.7); MCHC 34.5 g/dl (32.0-35.9); MEAN CELL VOLUME 91.6 fl (80-96); MEAN PLT VOLUME 9.1 fl (7.5-11.1); MONO % 9.1 % (3.8-10.2); NEUT % 65.6 % (42.8-82.8); PLATELET COUNT 232 10^3/uL (134-434); RBC 2.79 M/mm3 (4.00-5.60); RDW 14.8 % (11.9-15.9)
[2023-05-14 07:45] LABS: PHOSPHOROUS 1.8 mg/dL (2.5-4.9)
[2023-05-14 07:47] LABS: BILIRUBIN,TOTAL 0.4 mg/dL (0.2-1); TOT PROT 6.5 g/dl (6.4-8.2)
[2023-05-14] MEDS: ASCORBIC ACID 250 MG TABLET (FP) PO SCH (16:40)
[2023-05-14] MEDS: MULTIVITAMINS (DAILY MVI) TABLET (FP) PO SCH (16:40)
[2023-05-15 06:12] VITALS: TEMP 97.9
[2023-05-15 10:43] VITALS: BP 149/80; PULSE 72
== END 2023-05-15 10:50 | DRG 871 ==
LOC: JER 11:35 → JERBED 14:22 → J4W 19:22
PROVIDERS: ADMIT Internal Medicine; ATTEND Internal Medicine
PROC: 05HA33Z Insertion of Infusion Device into Left Brachial Vein, Percutaneous Approach (ICD-10-PCS; principal; 2023-05-14)
DX: A41.51 Sepsis due to Escherichia coli [E. coli] (principal); E43 Unspecified severe protein-calorie malnutrition; G93.41 Metabolic encephalopathy; I69.351 Hemiplegia and hemiparesis following cerebral infarction affecting right dominant side; R64 Cachexia; Z68.1 Body mass index [BMI] 19.9 or less, adult; E87.0 Hyperosmolality and hypernatremia; I47.10 Supraventricular tachycardia, unspecified; N39.0 Urinary tract infection, site not specified; E78.5 Hyperlipidemia, unspecified; K21.9 Gastro-esophageal reflux disease without esophagitis; F03.90 Unspecified dementia, unspecified severity, without behavioral disturbance, psychotic disturbance, mood disturbance, and anxiety; L89.152 Pressure ulcer of sacral region, stage 2; E86.0 Dehydration; R41.82 Altered mental status, unspecified; I69.391 Dysphagia following cerebral infarction; R13.10 Dysphagia, unspecified; G40.909 Epilepsy, unspecified, not intractable, without status epilepticus; H40.9 Unspecified glaucoma; H54.40 Blindness, one eye, unspecified eye; F41.8 Other specified anxiety disorders; N40.0 Benign prostatic hyperplasia without lower urinary tract symptoms; K59.00 Constipation, unspecified; I12.9 Hypertensive chronic kidney disease with stage 1 through stage 4 chronic kidney disease, or unspecified chronic kidney disease; N18.9 Chronic kidney disease, unspecified; R33.9 Retention of urine, unspecified
CPT/HCPCS: 0241U-QW; 36415; 71045-TC-FY; 74176-TC; 80048; 80053; 81003; 82272; 82550; 82553; 82803; 83605; 83690; 83735; 84100; 84484; 85025; 85027; 85610; 85730; 86850; 86900; 86901; 87040; 87086; 87186; 93005; 93010; 99285-25; J0131; J1644

== ENCOUNTER 2023-11-09 16:55 | Inpatient (IN) | payer OTHER, BC ==
[2023-11-09 19:55] LABS: BASO % 0.9 % (0-2.0); EOS % 1.6 % (0-4.5); HEMATOCRIT 29.7 % (35.4-49); HEMOGLOBIN 10.2 GM/dL (11.7-16.9); MCH 30.5 pg (25.7-33.7); MCHC 34.2 g/dl (32.0-35.9); MEAN CELL VOLUME 89.3 fl (80-96); MEAN PLT VOLUME 8.6 fl (7.5-11.1); MONO % 6.2 % (3.8-10.2); NEUT % 73.3 % (42.8-82.8); PLATELET COUNT 233 10^3/uL (134-434); RBC 3.33 M/mm3 (4.00-5.60); WHITE BLOOD COUNT 7.1 K/mm3 (4.0-10.0)
[2023-11-09] MEDS: PIPERACILLIN/TAZOB 3.375 GM 3.375 GM in DEXTROSE 5%-WATER - 50 ML IVPB ONE (20:01)
[2023-11-09] MEDS ORDERED: PIPERACILLIN/TAZOB 3.375 GM 3.375 GM/50 ML BAG IVPB ONE (20:03)
[2023-11-09 20:19] LABS: INR 1.16 (0.83-1.09); PROTHROMBIN TIME (PATIENT) 13.3 SEC (9.7-13.0)
[2023-11-09] MEDS: SODIUM CHLORIDE 0.9% 500 ML INFUS.BAG IV ONE (20:48)
[2023-11-09 20:52] LABS: POTASSIUM 4.3 mmol/L (3.5-5.1)
[2023-11-09 20:54] LABS: ALBUMIN 3.2 g/dl (3.4-5.0); CALCIUM 8.6 mg/dL (8.5-10.1)
[2023-11-09 20:55] LABS: BLOOD UREA NITROGEN 22.2 mg/dL (7-18)
[2023-11-09 20:58] LABS: CREATININE 1.2 mg/dL (0.55-1.3)
[2023-11-09 20:59] LABS: BILIRUBIN,TOTAL 0.5 mg/dL (0.2-1); TOT PROT 7.3 g/dl (6.4-8.2)
[2023-11-09 21:06] LABS: URINE COLOR RED
[2023-11-09 21:07] LABS: URINE APPEARANCE TURBID; URINE BILIRUBIN NEGATIVE (NEGATIVE); URINE GLUCOSE (UA) NEGATIVE (NEGATIVE); URINE KETONE NEGATIVE (NEGATIVE)
[2023-11-09 21:08] LABS: PH,URINE 6.5 (5.0-8.0); URINE PROTEIN 300 (NEGATIVE)
[2023-11-09] MEDS ORDERED: MINERAL OIL ENEMA 133 ML ENEMA RC PRN (23:34)
[2023-11-09] MEDS ORDERED: PATIENT'S OWN MEDICATION (NON-FORMULARY) (Chlorpheniramine/Dextromethorp [Robitussin Long- PO PRN (23:34)
[2023-11-09] MEDS ORDERED: LACTULOSE 20 GM/30 ML UDC (FOR ORAL USE ONLY) PO PRN (23:34)
[2023-11-09] MEDS ORDERED: ALBUTEROL SO4 2.5/IPRATROPIUM 0.5 INH SOL 3 ML VIAL.NEB. NEB PRN (23:34)
[2023-11-10] MEDS ORDERED: ACETAMINOPHEN 650 MG/20.3 ML ORAL SOLUTION (CUPS) ONE (00:51)
[2023-11-10] MEDS: ACETAMINOPHEN 160 MG/5 ML PO PRN (00:58)
[2023-11-10] MEDS ORDERED: POLYETHYLENE GLYCOL (HEALTHYLAX) 3350 17 GM PACKET ONE (08:52)
[2023-11-10] MEDS ORDERED: amLODIPine BESYLATE 5 MG TABLET (FP) ONE (08:52)
[2023-11-10] MEDS ORDERED: ASCORBIC ACID 500 MG TABLET (FP) ONE (08:52)
[2023-11-10] MEDS ORDERED: DOCUSATE SODIUM 100 MG CAPSULE (FP) PO ONE (08:52)
[2023-11-10 09:20] LABS: BASO % 1.2 % (0-2.0); EOS % 3.5 % (0-4.5); HEMATOCRIT 29.2 % (35.4-49); HEMOGLOBIN 10.1 GM/dL (11.7-16.9); LYMPH % 31.8 % (8-40); MCH 31.3 pg (25.7-33.7); MCHC 34.8 g/dl (32.0-35.9); MEAN CELL VOLUME 89.9 fl (80-96); MEAN PLT VOLUME 8.6 fl (7.5-11.1); MONO % 9.9 % (3.8-10.2); NEUT % 53.6 % (42.8-82.8); PLATELET COUNT 195 10^3/uL (134-434); RBC 3.25 M/mm3 (4.00-5.60); RDW 14.9 % (11.9-15.9); WHITE BLOOD COUNT 4.1 K/mm3 (4.0-10.0)
[2023-11-10 09:39] LABS: POTASSIUM 3.9 mmol/L (3.5-5.1)
[2023-11-10 09:43] LABS: ALBUMIN 3.2 g/dl (3.4-5.0); BLOOD UREA NITROGEN 19.7 mg/dL (7-18); CALCIUM 8.9 mg/dL (8.5-10.1)
[2023-11-10 09:44] LABS: MAGNESIUM 2.3 mg/dL (1.8-2.4)
[2023-11-10] MEDS: PANTOPRAZOLE SOD 40 MG SUSPENSION PACKET PO SCH (09:45)
[2023-11-10] MEDS: amLODIPine BESYLATE 5 MG TABLET (FP) PO SCH (09:45)
[2023-11-10] MEDS: FERROUS SULFATE 220 MG/5 ML ELIXIR PO SCH (09:45)
[2023-11-10] MEDS: POLYETHYLENE GLYCOL (HEALTHYLAX) 3350 17 GM PACKET PO SCH (09:45)
[2023-11-10] MEDS: DOCUSATE SODIUM 100 MG CAPSULE (FP) PO SCH (09:45)
[2023-11-10] MEDS: ASCORBIC ACID 500 MG TABLET (FP) PO SCH (09:45)
[2023-11-10] MEDS: levETIRAcetam 500 MG/5 ML ORAL SOLUTION (UNIT-DOSE CUPS) PO SCH ×2 (09:45→18:00)
[2023-11-10] MEDS: FINASTERIDE 5 MG TABLET (FP) PO SCH (09:45)
[2023-11-10 09:47] LABS: PHOSPHOROUS 3.5 mg/dL (2.5-4.9)
[2023-11-10 09:48] LABS: BILIRUBIN,TOTAL 0.8 mg/dL (0.2-1); TOT PROT 7.1 g/dl (6.4-8.2)
[2023-11-10] MEDS ORDERED: HALOPERIDOL LACTATE 5 MG/ML ONE (17:06)
[2023-11-10] MEDS: HALOPERIDOL LACTATE 5 MG/ML IM PRN (17:10)
[2023-11-10] MEDS ORDERED: MEROPENEM 1 GM VIAL (RESTRICTED TO ID) IVPB ONE (17:48)
[2023-11-10] MEDS: MEROPENEM 1 GM in DEXTROSE 5%-WATER 100 ML IVPB SCH (18:00)
[2023-11-10] MEDS: MEROPENEM 1 GM in DEXTROSE 5%-WATER 100 ML IVPB ONE (19:21)
[2023-11-10] MEDS: SODIUM CHLORIDE 500 ML IV STA (19:59)
[2023-11-10] MEDS ORDERED: ATORVASTATIN CA 40 MG TABLET (FP) ONE (22:35)
[2023-11-10] MEDS ORDERED: traZODone HCL 50 MG TABLET (FP) ONE (22:36)
[2023-11-10] MEDS ORDERED: MELATONIN 5 MG TABLETS ONE (22:36)
[2023-11-10] MEDS: ATORVASTATIN CA 40 MG TABLET (FP) PO SCH (22:52)
[2023-11-10] MEDS: MELATONIN 5 MG TABLETS PO SCH (22:52)
[2023-11-10] MEDS: traZODone HCL 50 MG TABLET (FP) PO SCH (22:52)
[2023-11-11] MEDS ORDERED: MEROPENEM 1 GM VIAL (RESTRICTED TO ID) IVPB ONE ×3 (02:38→18:19)
[2023-11-11 07:47] LABS: HEMATOCRIT 27.5 % (35.4-49); HEMOGLOBIN 9.5 GM/dL (11.7-16.9); MCH 31.3 pg (25.7-33.7); MCHC 34.5 g/dl (32.0-35.9); MEAN CELL VOLUME 90.8 fl (80-96); MEAN PLT VOLUME 8.9 fl (7.5-11.1); RBC 3.03 M/mm3 (4.00-5.60); RDW 14.7 % (11.9-15.9); WHITE BLOOD COUNT 5.1 K/mm3 (4.0-10.0)
[2023-11-11 07:55] LABS: POTASSIUM 4.5 mmol/L (3.5-5.1)
[2023-11-11 08:07] LABS: CALCIUM 8.5 mg/dL (8.5-10.1)
[2023-11-11 08:08] LABS: MAGNESIUM 2.1 mg/dL (1.8-2.4)
[2023-11-11 08:11] LABS: CREATININE 1.1 mg/dL (0.55-1.3); PHOSPHOROUS 3.5 mg/dL (2.5-4.9)
[2023-11-11 08:13] LABS: BILIRUBIN,TOTAL 0.4 mg/dL (0.2-1); TOT PROT 6.9 g/dl (6.4-8.2)
[2023-11-11 09:16] LABS: PLATELET COUNT 186 10^3/uL (134-434)
[2023-11-11] MEDS: MEROPENEM 1 GM in DEXTROSE 5%-WATER 100 ML IVPB SCH (18:30)
[2023-11-12 09:44] LABS: HEMATOCRIT 26.8 % (35.4-49); MCH 30.5 pg (25.7-33.7); MCHC 33.7 g/dl (32.0-35.9); MEAN CELL VOLUME 90.5 fl (80-96); MEAN PLT VOLUME 8.8 fl (7.5-11.1); PLATELET COUNT 204 10^3/uL (134-434); RBC 2.96 M/mm3 (4.00-5.60); RDW 14.6 % (11.9-15.9); WHITE BLOOD COUNT 4.2 K/mm3 (4.0-10.0)
[2023-11-12 09:58] LABS: POTASSIUM 4.2 mmol/L (3.5-5.1)
[2023-11-12 10:03] LABS: BLOOD UREA NITROGEN 20.1 mg/dL (7-18); CALCIUM 8.7 mg/dL (8.5-10.1); MAGNESIUM 2.2 mg/dL (1.8-2.4)
[2023-11-12 10:05] LABS: TOT PROT 6.9 g/dl (6.4-8.2)
[2023-11-12 10:06] LABS: PHOSPHOROUS 2.9 mg/dL (2.5-4.9)
[2023-11-12 10:07] LABS: BILIRUBIN,TOTAL 0.5 mg/dL (0.2-1)
[2023-11-13 09:19] LABS: HEMATOCRIT 25.3 % (35.4-49); HEMOGLOBIN 8.7 GM/dL (11.7-16.9); MCH 30.7 pg (25.7-33.7); MCHC 34.5 g/dl (32.0-35.9); MEAN CELL VOLUME 89.1 fl (80-96); MEAN PLT VOLUME 8.8 fl (7.5-11.1); PLATELET COUNT 195 10^3/uL (134-434); RBC 2.84 M/mm3 (4.00-5.60); RDW 14.9 % (11.9-15.9); WHITE BLOOD COUNT 4.6 K/mm3 (4.0-10.0)
[2023-11-13 09:42] LABS: POTASSIUM 4.1 mmol/L (3.5-5.1)
[2023-11-13 09:56] LABS: CALCIUM 8.8 mg/dL (8.5-10.1)
[2023-11-13 09:57] LABS: BLOOD UREA NITROGEN 21.2 mg/dL (7-18); MAGNESIUM 2.1 mg/dL (1.8-2.4)
[2023-11-13 09:59] LABS: CREATININE 0.9 mg/dL (0.55-1.3); PHOSPHOROUS 2.9 mg/dL (2.5-4.9)
[2023-11-13 10:00] LABS: BILIRUBIN,TOTAL 0.4 mg/dL (0.2-1); TOT PROT 6.7 g/dl (6.4-8.2)
[2023-11-13] MEDS: MULTIVITAMINS (DAILY MVI) TABLET (FP) PO SCH (21:17)
[2023-11-14 09:48] LABS: HEMATOCRIT 26.1 % (35.4-49); MCH 31.4 pg (25.7-33.7); MCHC 34.5 g/dl (32.0-35.9); MEAN CELL VOLUME 91.1 fl (80-96); MEAN PLT VOLUME 9.1 fl (7.5-11.1); PLATELET COUNT 198 10^3/uL (134-434); RBC 2.87 M/mm3 (4.00-5.60); RDW 14.8 % (11.9-15.9); WHITE BLOOD COUNT 4.6 K/mm3 (4.0-10.0)
[2023-11-14 10:41] LABS: POTASSIUM 4.3 mmol/L (3.5-5.1)
[2023-11-14 10:53] LABS: CALCIUM 8.7 mg/dL (8.5-10.1)
[2023-11-14 10:54] LABS: BLOOD UREA NITROGEN 18.4 mg/dL (7-18); MAGNESIUM 2.3 mg/dL (1.8-2.4)
[2023-11-14 10:57] LABS: BILIRUBIN,TOTAL 0.7 mg/dL (0.2-1); TOT PROT 6.8 g/dl (6.4-8.2)
[2023-11-14] MEDS: ERTAPENEM SODIUM 1 GM in SODIUM CHLORIDE 50 ML IVPB ONE (16:10)
[2023-11-14 17:00] VITALS: RESP 18
[2023-11-14 19:57] VITALS: BP 116/62; PULSE 57; TEMP 97.7
[2023-11-15] MEDS ORDERED: ERTAPENEM SODIUM 1 GM in SODIUM CHLORIDE 50 ML IVPB SCH (10:00)
== END 2023-11-15 01:15 | DRG 698 ==
LOC: JER 16:55 → JERBED 22:12 → J6S 11-11 19:43
PROVIDERS: ADMIT Internal Medicine; ATTEND Internal Medicine
PROC: 02HV33Z Insertion of Infusion Device into Superior Vena Cava, Percutaneous Approach (ICD-10-PCS; principal; 2023-11-14)
PROC: B518ZZA Fluoroscopy of Superior Vena Cava, Guidance (ICD-10-PCS; 2023-11-14)
DX: T83.83XA Hemorrhage due to genitourinary prosthetic devices, implants and grafts, initial encounter (principal); E43 Unspecified severe protein-calorie malnutrition; R53.2 Functional quadriplegia; N39.0 Urinary tract infection, site not specified; I69.351 Hemiplegia and hemiparesis following cerebral infarction affecting right dominant side; F03.911 Unspecified dementia, unspecified severity, with agitation; R31.0 Gross hematuria; E78.00 Pure hypercholesterolemia, unspecified; G40.909 Epilepsy, unspecified, not intractable, without status epilepticus; R13.10 Dysphagia, unspecified; I10 Essential (primary) hypertension; N31.9 Neuromuscular dysfunction of bladder, unspecified; D63.8 Anemia in other chronic diseases classified elsewhere; R45.1 Restlessness and agitation; B96.20 Unspecified Escherichia coli [E. coli] as the cause of diseases classified elsewhere; Z68.20 Body mass index [BMI] 20.0-20.9, adult; I69.391 Dysphagia following cerebral infarction; N40.0 Benign prostatic hyperplasia without lower urinary tract symptoms; K21.9 Gastro-esophageal reflux disease without esophagitis; F41.8 Other specified anxiety disorders; Y83.8 Other surgical procedures as the cause of abnormal reaction of the patient, or of later complication, without mention of misadventure at the time of the procedure; Z85.46 Personal history of malignant neoplasm of prostate
CPT/HCPCS: 36415; 36569; 80053; 81003; 81015; 83735; 84100; 85025; 85027; 85610; 86850; 86900; 86901; 87086; 87186; 93005; 93010; 99285-25

== ENCOUNTER 2023-12-20 13:54 | Inpatient (IN) | payer OTHER, BC ==
[2023-12-20 14:28] VITALS: BMI 18.3
[2023-12-20] MEDS: SODIUM CHLORIDE 0.9% 500 ML INFUS.BAG IV ONE (15:06)
[2023-12-20 15:17] LABS: EOS % 6.2 % (0-4.5); HEMATOCRIT 29.1 % (35.4-49); HEMOGLOBIN 9.7 GM/dL (11.7-16.9); LYMPH % 21.1 % (8-40); MCHC 33.4 g/dl (32.0-35.9); MEAN CELL VOLUME 89.7 fl (80-96); MEAN PLT VOLUME 7.9 fl (7.5-11.1); MONO % 7.6 % (3.8-10.2); NEUT % 64.1 % (42.8-82.8); PLATELET COUNT 227 10^3/uL (134-434); RBC 3.25 M/mm3 (4.00-5.60); RDW 14.8 % (11.9-15.9); WHITE BLOOD COUNT 4.9 K/mm3 (4.0-10.0)
[2023-12-20 15:24] LABS: INR 1.08 (0.83-1.09); PROTHROMBIN TIME (PATIENT) 12.2 SEC (9.7-13.0)
[2023-12-20 15:26] LABS: ACTIVATED PTT 34.5 SECONDS (25.2-36.5)
[2023-12-20 15:38] LABS: POTASSIUM 4.4 mmol/L (3.5-5.1)
[2023-12-20 15:40] LABS: CALCIUM 8.4 mg/dL (8.5-10.1)
[2023-12-20 15:41] LABS: BLOOD UREA NITROGEN 28.3 mg/dL (7-18)
[2023-12-20 15:43] LABS: CREATININE 1.1 mg/dL (0.55-1.3)
[2023-12-20 15:45] LABS: BILIRUBIN,TOTAL 0.3 mg/dL (0.2-1); TOT PROT 6.8 g/dl (6.4-8.2)
[2023-12-20 16:44] LABS: EPI CELLS 1 /uL (0-25.1); HYALINE CASTS 0 /uL (0-3.1); URINE APPEARANCE CLOUDY; URINE BACTERIA 1065 /uL (0-1359); URINE BILIRUBIN NEGATIVE (NEGATIVE); URINE COLOR YELLOW; URINE GLUCOSE (UA) NEGATIVE (NEGATIVE); URINE KETONE NEGATIVE (NEGATIVE); URINE LEUK ESTERASE 3+ (NEGATIVE); URINE NITRITE NEGATIVE (NEGATIVE); URINE PROTEIN TRACE (NEGATIVE); URINE RBC 185 /uL (0-23.9); URINE WBC 1591 /uL (0-25.8)
[2023-12-20] MEDS ORDERED: PIPERACILLIN/TAZOB 3.375 GM 3.375 GM/50 ML BAG IVPB ONE (17:02)
[2023-12-20] MEDS: PIPERACILLIN/TAZOB 3.375 GM 3.375 GM in DEXTROSE 5%-WATER - 50 ML IVPB ONE (17:03)
[2023-12-20] MEDS ORDERED: LACTULOSE 20 GM/30 ML UDC (FOR ORAL USE ONLY) PO PRN (18:38)
[2023-12-20] MEDS ORDERED: PATIENT'S OWN MEDICATION (NON-FORMULARY) (Chlorpheniramine/Dextromethorp [Robitussin Long- PO PRN (18:38)
[2023-12-20] MEDS ORDERED: DOCUSATE SODIUM 100 MG CAPSULE (FP) PO ONE (19:13)
[2023-12-20] MEDS ORDERED: MEROPENEM 1 GM VIAL (RESTRICTED TO ID) IVPB ONE (19:18)
[2023-12-20] MEDS: MEROPENEM 1 GM in DEXTROSE 5%-WATER 100 ML IVPB SCH (19:33)
[2023-12-20] MEDS: DOCUSATE SODIUM 100 MG CAPSULE (FP) PO SCH (19:33)
[2023-12-20] MEDS ORDERED: MELATONIN 5 MG TABLETS ONE (22:00)
[2023-12-20] MEDS ORDERED: SENNOSIDES 8.6MG TABLET (FP) PO ONE (22:00)
[2023-12-20] MEDS ORDERED: POLYETHYLENE GLYCOL (HEALTHYLAX) 3350 17 GM PACKET ONE (22:00)
[2023-12-20] MEDS ORDERED: traZODone HCL 50 MG TABLET (FP) ONE (22:01)
[2023-12-20] MEDS ORDERED: ATORVASTATIN CA 40 MG TABLET (FP) ONE (22:03)
[2023-12-20] MEDS: traZODone HCL 50 MG TABLET (FP) PO SCH (22:13)
[2023-12-20] MEDS: POLYETHYLENE GLYCOL (HEALTHYLAX) 3350 17 GM PACKET PO SCH (22:13)
[2023-12-20] MEDS: ATORVASTATIN CA 40 MG TABLET (FP) PO SCH (22:15)
[2023-12-20] MEDS: MELATONIN 5 MG TABLETS PO SCH (22:15)
[2023-12-20] MEDS: SENNOSIDES 8.6MG TABLET (FP) PO SCH (22:15)
[2023-12-20] MEDS: levETIRAcetam 500 MG/5 ML ORAL SOLUTION (UNIT-DOSE CUPS) PO SCH (22:35)
[2023-12-21 08:58] LABS: HEMATOCRIT 28.8 % (35.4-49); HEMOGLOBIN 9.8 GM/dL (11.7-16.9); MCH 30.6 pg (25.7-33.7); MCHC 34.1 g/dl (32.0-35.9); MEAN CELL VOLUME 89.8 fl (80-96); MEAN PLT VOLUME 7.9 fl (7.5-11.1); PLATELET COUNT 213 10^3/uL (134-434); RBC 3.21 M/mm3 (4.00-5.60); RDW 15.1 % (11.9-15.9); WHITE BLOOD COUNT 5.1 K/mm3 (4.0-10.0)
[2023-12-21] MEDS: FINASTERIDE 5 MG TABLET (FP) PO SCH (09:11)
[2023-12-21] MEDS: ASPIRIN 81 MG CHEWABLE TABLETS PO SCH (09:11)
[2023-12-21] MEDS: ASCORBIC ACID 500 MG TABLET (FP) PO SCH (09:11)
[2023-12-21] MEDS: amLODIPine BESYLATE 5 MG TABLET (FP) PO SCH (09:11)
[2023-12-21] MEDS: ENOXAPARIN NA (PORCINE) 40 MG/0.4 ML DISP.SYRIN SQ SCH (09:12)
[2023-12-21] MEDS: levETIRAcetam 500 MG/5 ML ORAL SOLUTION (UNIT-DOSE CUPS) PO SCH (09:12)
[2023-12-21] MEDS: PANTOPRAZOLE SOD 40 MG SUSPENSION PACKET PO SCH (09:12)
[2023-12-21 09:14] LABS: POTASSIUM 3.9 mmol/L (3.5-5.1)
[2023-12-21 10:43] LABS: ALBUMIN 3.1 g/dl (3.4-5.0); BLOOD UREA NITROGEN 18.6 mg/dL (7-18); CALCIUM 8.7 mg/dL (8.5-10.1)
[2023-12-21 10:46] LABS: CREATININE 0.9 mg/dL (0.55-1.3)
[2023-12-21 10:48] LABS: BILIRUBIN,TOTAL 0.4 mg/dL (0.2-1)
[2023-12-21] MEDS: MEROPENEM 1 GM in DEXTROSE 5%-WATER 100 ML IVPB SCH (17:24)
[2023-12-22] MEDS: MULTIVITAMINS (DAILY MVI) TABLET (FP) PO SCH (09:48)
[2023-12-22 09:49] LABS: BASO % 1.1 % (0-2.0); EOS % 4.4 % (0-4.5); HEMOGLOBIN 9.3 GM/dL (11.7-16.9); LYMPH % 21.2 % (8-40); MCH 30.4 pg (25.7-33.7); MCHC 34.4 g/dl (32.0-35.9); MEAN CELL VOLUME 88.2 fl (80-96); MEAN PLT VOLUME 8.5 fl (7.5-11.1); NEUT % 62.3 % (42.8-82.8); PLATELET COUNT 206 10^3/uL (134-434); RBC 3.06 M/mm3 (4.00-5.60); RDW 15.3 % (11.9-15.9); WHITE BLOOD COUNT 4.7 K/mm3 (4.0-10.0)
[2023-12-22 10:26] LABS: POTASSIUM 4.5 mmol/L (3.5-5.1)
[2023-12-22 10:31] LABS: ALBUMIN 2.8 g/dl (3.4-5.0); CALCIUM 8.5 mg/dL (8.5-10.1)
[2023-12-22 10:32] LABS: BLOOD UREA NITROGEN 20.2 mg/dL (7-18)
[2023-12-22 10:35] LABS: CREATININE 1.1 mg/dL (0.55-1.3)
[2023-12-22 10:36] LABS: BILIRUBIN,TOTAL 0.3 mg/dL (0.2-1); TOT PROT 6.5 g/dl (6.4-8.2)
[2023-12-23] MEDS ORDERED: guaiFENesin/D-METHORPHAN HB 10 ML UNIT-DOSE CUPS PO PRN (08:56)
[2023-12-23 10:32] LABS: BASO % 1.1 % (0-2.0); EOS % 3.8 % (0-4.5); HEMATOCRIT 30.1 % (35.4-49); HEMOGLOBIN 10.5 GM/dL (11.7-16.9); LYMPH % 20.1 % (8-40); MCH 30.7 pg (25.7-33.7); MCHC 34.8 g/dl (32.0-35.9); MEAN CELL VOLUME 88.1 fl (80-96); MEAN PLT VOLUME 8.4 fl (7.5-11.1); MONO % 7.3 % (3.8-10.2); NEUT % 67.7 % (42.8-82.8); PLATELET COUNT 234 10^3/uL (134-434); RBC 3.41 M/mm3 (4.00-5.60); WHITE BLOOD COUNT 4.9 K/mm3 (4.0-10.0)
[2023-12-23 10:37] LABS: POTASSIUM 4.2 mmol/L (3.5-5.1)
[2023-12-23 10:49] LABS: ALBUMIN 3.3 g/dl (3.4-5.0)
[2023-12-23 10:50] LABS: BLOOD UREA NITROGEN 14.9 mg/dL (7-18)
[2023-12-23 10:52] LABS: CALCIUM 9.1 mg/dL (8.5-10.1)
[2023-12-23 10:54] LABS: BILIRUBIN,TOTAL 0.5 mg/dL (0.2-1); TOT PROT 7.6 g/dl (6.4-8.2)
[2023-12-24 10:19] LABS: BASO % 0.6 % (0-2.0); EOS % 1.1 % (0-4.5); HEMATOCRIT 27.1 % (35.4-49); HEMOGLOBIN 9.2 GM/dL (11.7-16.9); LYMPH % 16.5 % (8-40); MCH 30.6 pg (25.7-33.7); MCHC 34.1 g/dl (32.0-35.9); MEAN CELL VOLUME 89.7 fl (80-96); MEAN PLT VOLUME 8.6 fl (7.5-11.1); MONO % 7.3 % (3.8-10.2); NEUT % 74.5 % (42.8-82.8); PLATELET COUNT 226 10^3/uL (134-434); RBC 3.02 M/mm3 (4.00-5.60); RDW 14.6 % (11.9-15.9); WHITE BLOOD COUNT 6.4 K/mm3 (4.0-10.0)
[2023-12-24 10:54] LABS: POTASSIUM 4.5 mmol/L (3.5-5.1)
[2023-12-24 11:04] LABS: BLOOD UREA NITROGEN 25.9 mg/dL (7-18)
[2023-12-24 11:05] LABS: CREATININE 1.3 mg/dL (0.55-1.3); PHOSPHOROUS 3.3 mg/dL (2.5-4.9); TOT PROT 6.8 g/dl (6.4-8.2)
[2023-12-24 11:09] LABS: MAGNESIUM 2.5 mg/dL (1.8-2.4)
[2023-12-24 11:10] LABS: CALCIUM 8.9 mg/dL (8.5-10.1)
[2023-12-24 11:17] LABS: BILIRUBIN,TOTAL 0.4 mg/dL (0.2-1)
[2023-12-25] MEDS: HALOPERIDOL LACTATE 5 MG/ML IM ONE (01:50)
[2023-12-25 10:09] LABS: BASO % 0.7 % (0-2.0); EOS % 2.3 % (0-4.5); HEMATOCRIT 29.1 % (35.4-49); HEMOGLOBIN 9.7 GM/dL (11.7-16.9); MCH 29.7 pg (25.7-33.7); MCHC 33.4 g/dl (32.0-35.9); MEAN CELL VOLUME 88.9 fl (80-96); MEAN PLT VOLUME 8.4 fl (7.5-11.1); MONO % 6.9 % (3.8-10.2); NEUT % 73.1 % (42.8-82.8); PLATELET COUNT 231 10^3/uL (134-434); RBC 3.27 M/mm3 (4.00-5.60); RDW 14.9 % (11.9-15.9); WHITE BLOOD COUNT 5.6 K/mm3 (4.0-10.0)
[2023-12-25 10:26] LABS: POTASSIUM 4.3 mmol/L (3.5-5.1)
[2023-12-25 10:34] LABS: BLOOD UREA NITROGEN 29.2 mg/dL (7-18)
[2023-12-25 10:37] LABS: ALBUMIN 3.2 g/dl (3.4-5.0); CALCIUM 9.1 mg/dL (8.5-10.1); MAGNESIUM 2.6 mg/dL (1.8-2.4); PHOSPHOROUS 2.7 mg/dL (2.5-4.9); TOT PROT 7.3 g/dl (6.4-8.2)
[2023-12-25 10:44] LABS: BILIRUBIN,TOTAL 0.7 mg/dL (0.2-1)
[2023-12-25] MEDS: amLODIPine BESYLATE 5 MG TABLET (FP) PO SCH (10:57)
[2023-12-26 09:13] LABS: BASO % 0.8 % (0-2.0); HEMATOCRIT 32.8 % (35.4-49); HEMOGLOBIN 10.7 GM/dL (11.7-16.9); LYMPH % 16.7 % (8-40); MCH 29.5 pg (25.7-33.7); MCHC 32.5 g/dl (32.0-35.9); MEAN CELL VOLUME 90.9 fl (80-96); MEAN PLT VOLUME 8.6 fl (7.5-11.1); MONO % 7.5 % (3.8-10.2); PLATELET COUNT 248 10^3/uL (134-434); RBC 3.61 M/mm3 (4.00-5.60); RDW 14.9 % (11.9-15.9); WHITE BLOOD COUNT 7.1 K/mm3 (4.0-10.0)
[2023-12-26 09:37] LABS: ALBUMIN 3.5 g/dl (3.4-5.0); CALCIUM 9.1 mg/dL (8.5-10.1)
[2023-12-26 09:38] LABS: BLOOD UREA NITROGEN 29.9 mg/dL (7-18); MAGNESIUM 2.6 mg/dL (1.8-2.4)
[2023-12-26 09:41] LABS: BILIRUBIN,TOTAL 0.4 mg/dL (0.2-1); CREATININE 1.2 mg/dL (0.55-1.3); PHOSPHOROUS 3.1 mg/dL (2.5-4.9); TOT PROT 8.1 g/dl (6.4-8.2)
[2023-12-26] MEDS: LORazepam 2 MG/ML SDV VIAL IVPB PRN (18:20)
[2023-12-27] MEDS: ERTAPENEM SODIUM 1 GM in SODIUM CHLORIDE 50 ML IVPB SCH (10:31)
[2023-12-27] MEDS: TIGECYCLINE 100 MG in DEXTROSE 5%-WATER - 100 ML IVPB ONE (14:21)
[2023-12-28 04:29] VITALS: BP 117/79; PULSE 71; RESP 18; TEMP 97.9
[2023-12-28] MEDS ORDERED: TIGECYCLINE 50 MG in DEXTROSE 5%-WATER - 100 ML IVPB SCH (10:00)
== END 2023-12-28 05:45 | DRG 698 ==
LOC: JER 13:54 → JERBED 16:56 → J8W 23:52
PROVIDERS: ADMIT Internal Medicine; ATTEND Student in an Organized Health Care Education/Training Program
DX: T83.511A Infection and inflammatory reaction due to indwelling urethral catheter, initial encounter (principal); E43 Unspecified severe protein-calorie malnutrition; I69.351 Hemiplegia and hemiparesis following cerebral infarction affecting right dominant side; Z68.1 Body mass index [BMI] 19.9 or less, adult; G40.909 Epilepsy, unspecified, not intractable, without status epilepticus; I12.9 Hypertensive chronic kidney disease with stage 1 through stage 4 chronic kidney disease, or unspecified chronic kidney disease; N18.9 Chronic kidney disease, unspecified; N40.0 Benign prostatic hyperplasia without lower urinary tract symptoms; E78.5 Hyperlipidemia, unspecified; N39.0 Urinary tract infection, site not specified; B96.1 Klebsiella pneumoniae [K. pneumoniae] as the cause of diseases classified elsewhere; B96.20 Unspecified Escherichia coli [E. coli] as the cause of diseases classified elsewhere; K59.00 Constipation, unspecified; F03.90 Unspecified dementia, unspecified severity, without behavioral disturbance, psychotic disturbance, mood disturbance, and anxiety; R29.810 Facial weakness; R13.10 Dysphagia, unspecified; F41.8 Other specified anxiety disorders; N31.9 Neuromuscular dysfunction of bladder, unspecified; Y84.6 Urinary catheterization as the cause of abnormal reaction of the patient, or of later complication, without mention of misadventure at the time of the procedure; Y92.89 Other specified places as the place of occurrence of the external cause; Z85.46 Personal history of malignant neoplasm of prostate; Z74.01 Bed confinement status
CPT/HCPCS: 36415; 71045-TC-FY; 74177-TC; 80053; 81003; 83605; 83690; 83735; 84100; 84484; 85025; 85027; 85610; 85730; 86850; 86900; 86901; 87040; 87086; 87186; 93005; 93010; 97116-GP; 97161-GP; 99285-25; J3243; Q9967

== ENCOUNTER 2023-12-31 12:33 | Inpatient (IN) | payer OTHER, BC ==
[2023-12-31 13:36] LABS: BASO % 1.2 % (0-2.0); EOS % 1.4 % (0-4.5); HEMATOCRIT 33.4 % (35.4-49); HEMOGLOBIN 11.2 GM/dL (11.7-16.9); LYMPH % 19.3 % (8-40); MCH 30.2 pg (25.7-33.7); MCHC 33.5 g/dl (32.0-35.9); MEAN CELL VOLUME 90.1 fl (80-96); MEAN PLT VOLUME 8.8 fl (7.5-11.1); MONO % 5.7 % (3.8-10.2); NEUT % 72.4 % (42.8-82.8); PLATELET COUNT 339 10^3/uL (134-434); RBC 3.71 M/mm3 (4.00-5.60); RDW 15.1 % (11.9-15.9); WHITE BLOOD COUNT 6.2 K/mm3 (4.0-10.0)
[2023-12-31 13:43] LABS: INR 1.09 (0.83-1.09); PROTHROMBIN TIME (PATIENT) 12.5 SEC (9.7-13.0)
[2023-12-31 13:46] LABS: ACTIVATED PTT 35.5 SECONDS (25.2-36.5)
[2023-12-31 14:02] LABS: ALBUMIN 3.6 g/dl (3.4-5.0); BLOOD UREA NITROGEN 32.6 mg/dL (7-18)
[2023-12-31 14:05] LABS: CREATININE 1.3 mg/dL (0.55-1.3); PHOSPHOROUS 3.7 mg/dL (2.5-4.9)
[2023-12-31 14:07] LABS: TOT PROT 8.7 g/dl (6.4-8.2)
[2023-12-31 14:09] LABS: BILIRUBIN,TOTAL 0.7 mg/dL (0.2-1)
[2023-12-31 14:32] LABS: EPI CELLS 19 /uL (0-25.1); HYALINE CASTS 4 /uL (0-3.1); PH,URINE 5.5 (5.0-8.0); URINE APPEARANCE CLOUDY; URINE BACTERIA 263 /uL (0-1359); URINE BILIRUBIN NEGATIVE (NEGATIVE); URINE COLOR YELLOW; URINE GLUCOSE (UA) NEGATIVE (NEGATIVE); URINE KETONE NEGATIVE (NEGATIVE); URINE LEUK ESTERASE 3+ (NEGATIVE); URINE NITRITE NEGATIVE (NEGATIVE); URINE PROTEIN 2+ (NEGATIVE); URINE RBC 822 /uL (0-23.9); URINE UROBILINOGEN 0.2 mg/dL (0.2-1.0); URINE WBC 1482 /uL (0-25.8)
[2023-12-31] MEDS ORDERED: MEROPENEM 1 GM VIAL (RESTRICTED TO ID) IVPB ONE (14:49)
[2023-12-31] MEDS: MEROPENEM 1 GM in DEXTROSE 5%-WATER 100 ML IVPB ONE (16:10)
[2023-12-31] MEDS ORDERED: QUEtiapine FUMARATE 25 MG TABLET ONE ×2 (16:35→20:58)
[2023-12-31] MEDS: QUEtiapine FUMARATE 50 MG TABLET PO ONE (16:57)
[2023-12-31] MEDS: TIGECYCLINE 100 MG in DEXTROSE 5%-WATER - 100 ML IVPB ONE (16:57)
[2023-12-31] MEDS ORDERED: HALOPERIDOL LACTATE 5 MG/ML ONE (17:46)
[2023-12-31] MEDS: HALOPERIDOL LACTATE 5 MG/ML IM ONE (17:56)
[2023-12-31] MEDS ORDERED: ALBUTEROL SO4 2.5/IPRATROPIUM 0.5 INH SOL 3 ML VIAL.NEB. NEB PRN (19:55)
[2023-12-31] MEDS: levETIRAcetam 500 MG/5 ML ORAL SOLUTION (UNIT-DOSE CUPS) PO SCH (20:32)
[2023-12-31] MEDS ORDERED: levETIRAcetam 500 MG/5 ML INJECTION VIAL IVPB ONE (20:42)
[2023-12-31] MEDS: levETIRAcetam 500 MG/5 ML INJECTION VIAL IVPB ONE (20:55)
[2023-12-31] MEDS ORDERED: ENOXAPARIN NA (PORCINE) 40 MG/0.4 ML DISP.SYRIN SQ ONE (20:58)
[2023-12-31] MEDS: ENOXAPARIN NA (PORCINE) 40 MG/0.4 ML DISP.SYRIN SQ SCH (21:02)
[2023-12-31] MEDS: QUEtiapine FUMARATE 25 MG TABLET PO ONE (21:09)
[2024-01-01] MEDS: ATORVASTATIN CA 40 MG TABLET (FP) PO SCH (00:19)
[2024-01-01 08:54] LABS: HEMATOCRIT 32.2 % (35.4-49); HEMOGLOBIN 10.6 GM/dL (11.7-16.9); MCH 29.8 pg (25.7-33.7); MCHC 32.9 g/dl (32.0-35.9); MEAN CELL VOLUME 90.7 fl (80-96); MEAN PLT VOLUME 8.7 fl (7.5-11.1); PLATELET COUNT 301 10^3/uL (134-434); RBC 3.55 M/mm3 (4.00-5.60); RDW 14.6 % (11.9-15.9); WHITE BLOOD COUNT 8.4 K/mm3 (4.0-10.0)
[2024-01-01 09:12] LABS: POTASSIUM 4.5 mmol/L (3.5-5.1)
[2024-01-01 09:14] LABS: ALBUMIN 3.4 g/dl (3.4-5.0); BLOOD UREA NITROGEN 41.9 mg/dL (7-18); CALCIUM 8.9 mg/dL (8.5-10.1)
[2024-01-01 09:17] LABS: CREATININE 1.1 mg/dL (0.55-1.3)
[2024-01-01 09:19] LABS: BILIRUBIN,TOTAL 0.5 mg/dL (0.2-1); TOT PROT 7.6 g/dl (6.4-8.2)
[2024-01-01] MEDS ORDERED: amLODIPine BESYLATE 5 MG TABLET (FP) PO SCH (10:00)
[2024-01-01] MEDS ORDERED: ASCORBIC ACID 500 MG TABLET (FP) ONE (10:08)
[2024-01-01] MEDS ORDERED: ASPIRIN 81 MG CHEWABLE TABLETS ONE (10:08)
[2024-01-01] MEDS ORDERED: DOCUSATE SODIUM 100 MG CAPSULE (FP) PO ONE (10:08)
[2024-01-01] MEDS ORDERED: levETIRAcetam 500 MG TABLET (FP) PO ONE (10:08)
[2024-01-01] MEDS: ASPIRIN 81 MG CHEWABLE TABLETS PO SCH (10:25)
[2024-01-01] MEDS: levETIRAcetam 500 MG/5 ML ORAL SOLUTION (UNIT-DOSE CUPS) PO SCH ×2 (10:25→17:28)
[2024-01-01] MEDS: DOCUSATE SODIUM 100 MG CAPSULE (FP) PO SCH (10:26)
[2024-01-01] MEDS: ASCORBIC ACID 500 MG TABLET (FP) PO SCH (10:26)
[2024-01-01] MEDS: FINASTERIDE 5 MG TABLET (FP) PO SCH (10:32)
[2024-01-01] MEDS: HEPARIN NA (PORCINE) 5,000 UNITS/ML 1ML VIAL SQ SCH (23:02)
[2024-01-01] MEDS: MELATONIN 5 MG TABLETS PO ONE (23:03)
[2024-01-01] MEDS: hydrOXYzine HCL 100 MG/2 ML VIAL IM ONE (23:50)
[2024-01-02] MEDS: HALOPERIDOL LACTATE 5 MG/ML IM ONE ×2 (02:43→05:15)
[2024-01-02] MEDS ORDERED: HALOPERIDOL LACTATE 5 MG/ML ONE (05:05)
[2024-01-02 08:49] LABS: EOS % 0.2 % (0-4.5); HEMATOCRIT 33.1 % (35.4-49); HEMOGLOBIN 11.3 GM/dL (11.7-16.9); LYMPH % 10.5 % (8-40); MCH 30.3 pg (25.7-33.7); MEAN PLT VOLUME 8.9 fl (7.5-11.1); MONO % 5.5 % (3.8-10.2); NEUT % 82.8 % (42.8-82.8); PLATELET COUNT 314 10^3/uL (134-434); RBC 3.72 M/mm3 (4.00-5.60); RDW 14.8 % (11.9-15.9); WHITE BLOOD COUNT 8.7 K/mm3 (4.0-10.0)
[2024-01-02 09:00] LABS: POTASSIUM 4.5 mmol/L (3.5-5.1)
[2024-01-02 09:09] LABS: ALBUMIN 3.5 g/dl (3.4-5.0); BLOOD UREA NITROGEN 51.6 mg/dL (7-18)
[2024-01-02 09:12] LABS: CREATININE 1.5 mg/dL (0.55-1.3)
[2024-01-02 09:13] LABS: BILIRUBIN,TOTAL 0.8 mg/dL (0.2-1)
[2024-01-02] MEDS ORDERED: levETIRAcetam 500 MG TABLET (FP) PO ONE (09:14)
[2024-01-02] MEDS ORDERED: HEPARIN NA (PORCINE) 5,000 UNITS/ML 1ML VIAL ONE (10:50)
[2024-01-02] MEDS ORDERED: DOCUSATE SODIUM 100 MG CAPSULE (FP) PO ONE (10:50)
[2024-01-02] MEDS ORDERED: ASPIRIN 81 MG CHEWABLE TABLETS ONE (10:50)
[2024-01-02 12:53] VITALS: RESP 18
[2024-01-02] MEDS: LORazepam 0.5 MG TABLET PO PRN (18:27)
[2024-01-02 19:30] VITALS: BMI 17.2
[2024-01-03 05:36] VITALS: BP 113/64; PULSE 75; TEMP 98.2
== END 2024-01-03 10:58 | DRG 193 ==
LOC: JER 12:33 → JERBED 16:36 → J8W 01-02 13:52
PROVIDERS: ADMIT Internal Medicine; ATTEND Nurse Practitioner Family
DX: J18.9 Pneumonia, unspecified organism (principal); E43 Unspecified severe protein-calorie malnutrition; R53.2 Functional quadriplegia; N39.0 Urinary tract infection, site not specified; I69.353 Hemiplegia and hemiparesis following cerebral infarction affecting right non-dominant side; Z68.1 Body mass index [BMI] 19.9 or less, adult; F03.90 Unspecified dementia, unspecified severity, without behavioral disturbance, psychotic disturbance, mood disturbance, and anxiety; G40.909 Epilepsy, unspecified, not intractable, without status epilepticus; E78.5 Hyperlipidemia, unspecified; N40.0 Benign prostatic hyperplasia without lower urinary tract symptoms; R09.02 Hypoxemia; I10 Essential (primary) hypertension; Z85.46 Personal history of malignant neoplasm of prostate
CPT/HCPCS: 36415; 71045-TC-FY; 71250-TC; 80053; 81003; 82962; 83735; 84100; 84484; 85025; 85027; 85610; 85730; 86850; 86900; 86901; 87086; 93005; 93010; 99285-25; J1644; J3243

== ENCOUNTER 2024-01-23 18:21 | Inpatient (IN) | payer OTHER, BC ==
[2024-01-23 21:04] LABS: BASO % 0.7 % (0-2.0); EOS % 1.8 % (0-4.5); HEMATOCRIT 27.6 % (35.4-49); HEMOGLOBIN 9.2 GM/dL (11.7-16.9); LYMPH % 13.9 % (8-40); MCH 29.8 pg (25.7-33.7); MCHC 33.4 g/dl (32.0-35.9); MEAN CELL VOLUME 89.4 fl (80-96); MEAN PLT VOLUME 7.9 fl (7.5-11.1); MONO % 7.4 % (3.8-10.2); NEUT % 76.2 % (42.8-82.8); PLATELET COUNT 245 10^3/uL (134-434); RBC 3.09 M/mm3 (4.00-5.60); WHITE BLOOD COUNT 6.6 K/mm3 (4.0-10.0)
[2024-01-23 21:20] LABS: ALBUMIN 2.7 g/dl (3.4-5.0); CALCIUM 8.1 mg/dL (8.5-10.1)
[2024-01-23 21:21] LABS: BLOOD UREA NITROGEN 20.9 mg/dL (7-18)
[2024-01-23 21:24] LABS: CREATININE 1.3 mg/dL (0.55-1.3)
[2024-01-23 21:25] LABS: BILIRUBIN,TOTAL 0.3 mg/dL (0.2-1); TOT PROT 6.7 g/dl (6.4-8.2)
[2024-01-23 23:15] LABS: EPI CELLS 1 /uL (0-25.1); HYALINE CASTS 0 /uL (0-3.1); PH,URINE 5.5 (5.0-8.0); URINE APPEARANCE CLOUDY; URINE BACTERIA >9,000 /uL (0-1359); URINE BILIRUBIN NEGATIVE (NEGATIVE); URINE COLOR YELLOW; URINE GLUCOSE (UA) NEGATIVE (NEGATIVE); URINE KETONE NEGATIVE (NEGATIVE); URINE LEUK ESTERASE 3+ (NEGATIVE); URINE NITRITE NEGATIVE (NEGATIVE); URINE PROTEIN 1+ (NEGATIVE); URINE RBC 40 /uL (0-23.9); URINE UROBILINOGEN 0.2 mg/dL (0.2-1.0); URINE WBC 2372 /uL (0-25.8)
[2024-01-24] MEDS: TIGECYCLINE 100 MG in DEXTROSE 5%-WATER - 100 ML IVPB ONE (03:16)
[2024-01-24] MEDS ORDERED: ALBUTEROL SO4 2.5/IPRATROPIUM 0.5 INH SOL 3 ML VIAL.NEB. NEB PRN (03:19)
[2024-01-24 04:23] VITALS: BMI 23.8
[2024-01-24 09:43] LABS: HEMATOCRIT 32.3 % (35.4-49); MCH 30.3 pg (25.7-33.7); MEAN CELL VOLUME 89.2 fl (80-96); MEAN PLT VOLUME 8.3 fl (7.5-11.1); PLATELET COUNT 266 10^3/uL (134-434); RBC 3.62 M/mm3 (4.00-5.60); RDW 14.7 % (11.9-15.9); WHITE BLOOD COUNT 6.1 K/mm3 (4.0-10.0)
[2024-01-24 10:04] LABS: POTASSIUM 3.6 mmol/L (3.5-5.1)
[2024-01-24 10:07] LABS: BLOOD UREA NITROGEN 17.9 mg/dL (7-18)
[2024-01-24 10:10] LABS: CREATININE 1.1 mg/dL (0.55-1.3); PHOSPHOROUS 3.2 mg/dL (2.5-4.9)
[2024-01-24 10:11] LABS: BILIRUBIN,TOTAL 0.4 mg/dL (0.2-1); TOT PROT 8.1 g/dl (6.4-8.2)
[2024-01-24 10:18] LABS: ALBUMIN 3.3 g/dl (3.4-5.0)
[2024-01-24 10:42] LABS: CHOLESTEROL 109 mg/dL (50-200)
[2024-01-24 10:44] LABS: LDL CHOLESTEROL (ONLY SJRH) 46 mg/dL (5-100)
[2024-01-24 10:45] LABS: HDL CHOLESTEROL 52 mg/dL (40-60)
[2024-01-24] MEDS: DOCUSATE SODIUM 100 MG CAPSULE (FP) PO SCH (12:11)
[2024-01-24] MEDS: ENOXAPARIN NA (PORCINE) 40 MG/0.4 ML DISP.SYRIN SQ SCH (12:11)
[2024-01-24] MEDS: ASPIRIN 81 MG CHEWABLE TABLETS PO SCH (12:11)
[2024-01-24] MEDS: MELATONIN 5 MG TABLETS PO SCH (12:12)
[2024-01-24] MEDS: levETIRAcetam 500 MG/5 ML ORAL SOLUTION (UNIT-DOSE CUPS) PO SCH ×2 (12:12→17:09)
[2024-01-24] MEDS: FINASTERIDE 5 MG TABLET (FP) PO SCH (12:12)
[2024-01-24] MEDS: PANTOPRAZOLE SOD 40 MG SUSPENSION PACKET PO SCH (12:12)
[2024-01-24] MEDS: ASCORBIC ACID 500 MG TABLET (FP) PO SCH (12:12)
[2024-01-24] MEDS: POLYETHYLENE GLYCOL (HEALTHYLAX) 3350 17 GM PACKET PO SCH (12:13)
[2024-01-24] MEDS: amLODIPine BESYLATE 5 MG TABLET (FP) PO SCH (12:13)
[2024-01-24] MEDS: CEFTRIAXONE 1 GM in DEXTROSE 5%-WATER - 50 ML IVPB SCH (13:43)
[2024-01-24] MEDS: FERROUS SULFATE 220 MG/5 ML ELIXIR PO SCH (13:53)
[2024-01-24 14:48] LABS: EPI CELLS 2 /uL (0-25.1); HYALINE CASTS 2 /uL (0-3.1); URINE APPEARANCE CLOUDY; URINE BACTERIA 111 /uL (0-1359); URINE BILIRUBIN NEGATIVE (NEGATIVE); URINE COLOR YELLOW; URINE GLUCOSE (UA) NEGATIVE (NEGATIVE); URINE KETONE NEGATIVE (NEGATIVE); URINE LEUK ESTERASE 3+ (NEGATIVE); URINE NITRITE NEGATIVE (NEGATIVE); URINE PROTEIN 2+ (NEGATIVE); URINE RBC 2515 /uL (0-23.9); URINE UROBILINOGEN 0.2 mg/dL (0.2-1.0); URINE WBC 794 /uL (0-25.8)
[2024-01-24] MEDS: ATORVASTATIN CA 40 MG TABLET (FP) PO SCH (21:26)
[2024-01-25] MEDS ORDERED: TIGECYCLINE 100 MG in DEXTROSE 5%-WATER - 100 ML IVPB SCH (10:00)
[2024-01-25 12:19] LABS: BASO % 0.6 % (0-2.0); HEMATOCRIT 33.7 % (35.4-49); HEMOGLOBIN 11.2 GM/dL (11.7-16.9); LYMPH % 11.6 % (8-40); MCH 29.7 pg (25.7-33.7); MCHC 33.4 g/dl (32.0-35.9); MEAN CELL VOLUME 88.7 fl (80-96); MEAN PLT VOLUME 8.3 fl (7.5-11.1); MONO % 5.4 % (3.8-10.2); NEUT % 81.4 % (42.8-82.8); PLATELET COUNT 310 10^3/uL (134-434); RBC 3.79 M/mm3 (4.00-5.60); RDW 15.2 % (11.9-15.9); WHITE BLOOD COUNT 8.2 K/mm3 (4.0-10.0)
[2024-01-25 12:37] LABS: POTASSIUM 3.9 mmol/L (3.5-5.1)
[2024-01-25 12:39] LABS: CALCIUM 9.1 mg/dL (8.5-10.1)
[2024-01-25 12:40] LABS: BLOOD UREA NITROGEN 28.1 mg/dL (7-18)
[2024-01-25 12:43] LABS: CREATININE 1.2 mg/dL (0.55-1.3)
[2024-01-25] MEDS: MELATONIN 5 MG TABLETS PO SCH (21:52)
[2024-01-26 12:01] LABS: BLOOD UREA NITROGEN 27.7 mg/dL (7-18); CALCIUM 8.5 mg/dL (8.5-10.1)
[2024-01-26 12:04] LABS: CREATININE 1.2 mg/dL (0.55-1.3)
[2024-01-26] MEDS ORDERED: ACETAMINOPHEN 325 MG TABLET (FP) PO PRN (18:11)
[2024-01-26] MEDS: LORazepam 2 MG/ML SDV VIAL IVPUSH ONE (18:19)
[2024-01-26] MEDS: ACETAMINOPHEN 1000 MG/100 ML BAG IVPB ONE (18:20)
[2024-01-26 20:24] VITALS: RESP 18
[2024-01-27 02:02] VITALS: BP 129/58; PULSE 70; TEMP 98.1
== END 2024-01-27 01:39 | DRG 699 ==
LOC: JER 18:21 → OBSVTOIN 23:31 → JERBED 23:31 → J7W 01-24 03:59
PROVIDERS: ADMIT Internal Medicine; ATTEND Internal Medicine
DX: T83.511A Infection and inflammatory reaction due to indwelling urethral catheter, initial encounter (principal); I69.351 Hemiplegia and hemiparesis following cerebral infarction affecting right dominant side; J98.11 Atelectasis; N39.0 Urinary tract infection, site not specified; G40.909 Epilepsy, unspecified, not intractable, without status epilepticus; I12.9 Hypertensive chronic kidney disease with stage 1 through stage 4 chronic kidney disease, or unspecified chronic kidney disease; F03.90 Unspecified dementia, unspecified severity, without behavioral disturbance, psychotic disturbance, mood disturbance, and anxiety; N18.9 Chronic kidney disease, unspecified; I69.320 Aphasia following cerebral infarction; D64.9 Anemia, unspecified; E78.5 Hyperlipidemia, unspecified; I25.10 Atherosclerotic heart disease of native coronary artery without angina pectoris; R13.10 Dysphagia, unspecified; R33.9 Retention of urine, unspecified; Y83.9 Surgical procedure, unspecified as the cause of abnormal reaction of the patient, or of later complication, without mention of misadventure at the time of the procedure
CPT/HCPCS: 36415; 70450-TC; 71045-TC-FY; 72125-TC; 80048; 80053; 80061; 81003; 83735; 84100; 84443; 84484; 85025; 85027; 87086; 87186; 93005; 93010; 93306-TC; 93880-TC; 99285-25; J0131; J3243

== ENCOUNTER 2024-09-04 12:39 | Inpatient (IN) | payer OTHER, BC ==
[2024-09-04 14:16] LABS: ABSOLUTE IMMATURE GRANULOCYTES 0.02 x10^3/uL (0.0-0.031); BASOPHILS # 0.05 x10^3/uL (0.01-0.08); EOSINOPHIL % 4.4 % (0.8-7.0); EOSINOPHILS # 0.23 x10^3/uL (0.04-0.54); HEMATOCRIT 34.4 % (40.1-51.0); HEMOGLOBIN 11.2 g/dL (13.7-17.5); MCHC 32.6 g/dl (32.3-36.5); MEAN PLT VOLUME 10.1 fl (9.4-12.4); MONOCYTE # 0.46 x10^3/uL (0.30-0.82); MONOCYTE % 8.9 % (5.3-12.2); PLATELET COUNT 295 x10^3/uL (163-337); RDW 14.2 % (12.6-16.6)
[2024-09-04 14:24] LABS: INR 1.12 (0.83-1.09); PROTHROMBIN TIME (PATIENT) 12.3 SEC (9.7-13.0)
[2024-09-04 14:26] LABS: ACTIVATED PTT 31.4 SECONDS (25.2-36.5)
[2024-09-04 15:44] LABS: POTASSIUM 4.3 mmol/L (3.5-5.1)
[2024-09-04 15:46] LABS: CALCIUM 9.3 mg/dL (8.5-10.1)
[2024-09-04 15:47] LABS: ALBUMIN 3.4 g/dl (3.4-5.0); BLOOD UREA NITROGEN 27.2 mg/dL (7-18)
[2024-09-04 15:49] LABS: CREATININE 1.1 mg/dL (0.55-1.3)
[2024-09-04 15:51] LABS: BILIRUBIN,TOTAL 0.3 mg/dL (0.2-1); TOT PROT 7.7 g/dl (6.4-8.2)
[2024-09-04] MEDS ORDERED: MAGNESIUM HYDROX 2400MG/30ML ORAL SUSPENSION 30 ML CUP PO PRN (18:38)
[2024-09-04] MEDS ORDERED: ACETAMINOPHEN 325 MG TABLET (FP) PO PRN (18:38)
[2024-09-04] MEDS: levETIRAcetam 500 MG/5 ML ORAL SOLUTION (UNIT-DOSE CUPS) PO SCH (21:54)
[2024-09-04] MEDS: FERROUS SULFATE 220 MG/5 ML ELIXIR PO SCH (21:58)
[2024-09-04] MEDS: ATORVASTATIN CA 40 MG TABLET (FP) PO SCH (22:00)
[2024-09-04] MEDS: QUEtiapine FUMARATE 25 MG TABLET PO SCH (22:00)
[2024-09-04] MEDS: MELATONIN 1 MG TABLET PO SCH (22:00)
[2024-09-04] MEDS: SODIUM CHLORIDE 1,000 ML IV SCH (22:31)
[2024-09-05 07:39] LABS: ABSOLUTE IMMATURE GRANULOCYTES 0.01 x10^3/uL (0.0-0.031); BASOPHILS # 0.04 x10^3/uL (0.01-0.08); EOSINOPHIL % 6.4 % (0.8-7.0); EOSINOPHILS # 0.26 x10^3/uL (0.04-0.54); HEMATOCRIT 29.4 % (40.1-51.0); HEMOGLOBIN 9.5 g/dL (13.7-17.5); MCHC 32.3 g/dl (32.3-36.5); MEAN CELL VOLUME 92.2 fl (79.0-92.2); MONOCYTE # 0.38 x10^3/uL (0.30-0.82); MONOCYTE % 9.3 % (5.3-12.2); PLATELET COUNT 273 x10^3/uL (163-337); RDW 14.3 % (12.6-16.6)
[2024-09-05 08:33] LABS: POTASSIUM 4.3 mmol/L (3.5-5.1)
[2024-09-05 08:36] LABS: BLOOD UREA NITROGEN 21.6 mg/dL (7-18); CALCIUM 8.8 mg/dL (8.5-10.1); MAGNESIUM 2.4 mg/dL (1.8-2.4)
[2024-09-05 08:38] LABS: INR 1.17 (0.83-1.09); PROTHROMBIN TIME (PATIENT) 12.8 SEC (9.7-13.0)
[2024-09-05 08:40] LABS: PHOSPHOROUS 3.6 mg/dL (2.5-4.9)
[2024-09-05 08:41] LABS: BILIRUBIN,TOTAL 0.4 mg/dL (0.2-1); TOT PROT 6.8 g/dl (6.4-8.2)
[2024-09-05] MEDS ORDERED: LANSOPRAZOLE 15 MG PO SCH (10:00)
[2024-09-05] MEDS: POLYETHYLENE GLYCOL 3350 255 GM BTL PO SCH (10:09)
[2024-09-05] MEDS: BISACODYL 5 MG TABLET.DR (FP) PO SCH (10:10)
[2024-09-05] MEDS: CHOLECALCIFEROL (VIT D3) 1,000 UNIT (25 MCG) TABLET PO SCH (10:10)
[2024-09-05] MEDS: PANTOPRAZOLE 20 MG TABLET PO SCH (10:10)
[2024-09-05] MEDS: levETIRAcetam 500 MG/5 ML ORAL SOLUTION (UNIT-DOSE CUPS) PO SCH (10:10)
[2024-09-05] MEDS: ASCORBIC ACID 500 MG TABLET (FP) PO SCH (10:10)
[2024-09-05] MEDS: LORazepam 2 MG/ML SDV VIAL IVPUSH PRN (13:50)
[2024-09-05] MEDS: SODIUM CHLORIDE 1,000 ML IV SCH (14:09)
[2024-09-05 14:38] LABS: EPI CELLS 1 /uL (0-25.1); HYALINE CASTS 1 /uL (0-3.1); URINE APPEARANCE CLEAR; URINE BILIRUBIN NEGATIVE (NEGATIVE); URINE COLOR YELLOW; URINE GLUCOSE (UA) NEGATIVE (NEGATIVE); URINE KETONE NEGATIVE (NEGATIVE); URINE LEUK ESTERASE 3+ (NEGATIVE); URINE NITRITE POSITIVE (NEGATIVE); URINE PROTEIN NEGATIVE (NEGATIVE); URINE RBC 28 /uL (0-23.9); URINE UROBILINOGEN 0.2 mg/dL (0.2-1.0); URINE WBC 292 /uL (0-25.8)
[2024-09-05 17:27] LABS: URINE BACTERIA 775.2 /uL (0-1359)
[2024-09-05] MEDS: ACETAMINOPHEN 1000 MG/100 ML BAG IVPB SCH (18:28)
[2024-09-06 09:09] LABS: EOSINOPHILS # 0.13 x10^3/uL (0.04-0.54); RDW 13.8 % (12.6-16.6)
[2024-09-06 09:10] LABS: ABSOLUTE IMMATURE GRANULOCYTES 0.02 x10^3/uL (0.0-0.031); BASOPHILS # 0.04 x10^3/uL (0.01-0.08); EOSINOPHIL % 3.7 % (0.8-7.0); HEMOGLOBIN 9.5 g/dL (13.7-17.5); MCHC 32.8 g/dl (32.3-36.5); MEAN CELL VOLUME 92.1 fl (79.0-92.2); MEAN PLT VOLUME 9.8 fl (9.4-12.4); MONOCYTE # 0.41 x10^3/uL (0.30-0.82); MONOCYTE % 11.6 % (5.3-12.2); PLATELET COUNT 258 x10^3/uL (163-337)
[2024-09-06 09:29] LABS: POTASSIUM 3.9 mmol/L (3.5-5.1)
[2024-09-06 09:32] LABS: ALBUMIN 2.9 g/dl (3.4-5.0); BLOOD UREA NITROGEN 17.2 mg/dL (7-18); MAGNESIUM 2.2 mg/dL (1.8-2.4)
[2024-09-06 09:35] LABS: CREATININE 0.9 mg/dL (0.55-1.3)
[2024-09-06 09:36] LABS: BILIRUBIN,TOTAL 0.4 mg/dL (0.2-1)
[2024-09-06 10:41] LABS: TOT PROT 6.6 g/dl (6.4-8.2)
[2024-09-06] MEDS: HEPARIN NA (PORCINE) 5,000 UNITS/ML 1ML VIAL SQ SCH (16:46)
[2024-09-07 09:02] LABS: ABSOLUTE IMMATURE GRANULOCYTES 0.08 x10^3/uL (0.0-0.031); BASOPHILS # 0.04 x10^3/uL (0.01-0.08); EOSINOPHIL % 3.2 % (0.8-7.0); EOSINOPHILS # 0.14 x10^3/uL (0.04-0.54); HEMATOCRIT 28.2 % (40.1-51.0); HEMOGLOBIN 9.3 g/dL (13.7-17.5); MEAN CELL VOLUME 93.1 fl (79.0-92.2); MEAN PLT VOLUME 10.7 fl (9.4-12.4); MONOCYTE # 0.41 x10^3/uL (0.30-0.82); MONOCYTE % 9.4 % (5.3-12.2); PLATELET COUNT 267 x10^3/uL (163-337); RDW 13.8 % (12.6-16.6)
[2024-09-07 09:21] LABS: POTASSIUM 3.9 mmol/L (3.5-5.1)
[2024-09-07 09:30] LABS: ALBUMIN 2.9 g/dl (3.4-5.0); BLOOD UREA NITROGEN 15.9 mg/dL (7-18)
[2024-09-07 09:31] LABS: MAGNESIUM 2.1 mg/dL (1.8-2.4)
[2024-09-07 09:33] LABS: CREATININE 0.9 mg/dL (0.55-1.3)
[2024-09-07 09:34] LABS: BILIRUBIN,TOTAL 0.4 mg/dL (0.2-1)
[2024-09-07 09:35] LABS: TOT PROT 6.4 g/dl (6.4-8.2)
[2024-09-07] MEDS: POLYETHYLENE GLYCOL (HEALTHYLAX) 3350 17 GM PACKET PO SCH (10:30)
[2024-09-08 10:29] LABS: ABSOLUTE IMMATURE GRANULOCYTES 0.04 x10^3/uL (0.0-0.031); BASOPHILS # 0.04 x10^3/uL (0.01-0.08); EOSINOPHIL % 1.2 % (0.8-7.0); EOSINOPHILS # 0.08 x10^3/uL (0.04-0.54); HEMATOCRIT 29.3 % (40.1-51.0); HEMOGLOBIN 9.9 g/dL (13.7-17.5); MCHC 33.8 g/dl (32.3-36.5); MEAN CELL VOLUME 91.6 fl (79.0-92.2); MEAN PLT VOLUME 9.8 fl (9.4-12.4); MONOCYTE # 0.53 x10^3/uL (0.30-0.82); MONOCYTE % 7.8 % (5.3-12.2); PLATELET COUNT 263 x10^3/uL (163-337); RDW 14.1 % (12.6-16.6)
[2024-09-08 10:53] LABS: POTASSIUM 3.4 mmol/L (3.5-5.1)
[2024-09-08 10:55] LABS: CALCIUM 8.7 mg/dL (8.5-10.1)
[2024-09-08 10:56] LABS: ALBUMIN 3.2 g/dl (3.4-5.0); BLOOD UREA NITROGEN 10.9 mg/dL (7-18); MAGNESIUM 1.9 mg/dL (1.8-2.4)
[2024-09-08 10:59] LABS: CREATININE 0.9 mg/dL (0.55-1.3)
[2024-09-08 11:01] LABS: BILIRUBIN,TOTAL 0.5 mg/dL (0.2-1); TOT PROT 6.8 g/dl (6.4-8.2)
[2024-09-08] MEDS: POTASSIUM CHLORIDE ORAL LIQUID 20 MEQ/15 ML PO ONE (13:07)
[2024-09-09 09:27] LABS: ABSOLUTE IMMATURE GRANULOCYTES 0.02 x10^3/uL (0.0-0.031); BASOPHILS # 0.03 x10^3/uL (0.01-0.08); EOSINOPHIL % 3.5 % (0.8-7.0); EOSINOPHILS # 0.16 x10^3/uL (0.04-0.54); HEMATOCRIT 29.3 % (40.1-51.0); HEMOGLOBIN 9.7 g/dL (13.7-17.5); MCHC 33.1 g/dl (32.3-36.5); MEAN CELL VOLUME 93.3 fl (79.0-92.2); MEAN PLT VOLUME 10.4 fl (9.4-12.4); MONOCYTE % 10.8 % (5.3-12.2); PLATELET COUNT 259 x10^3/uL (163-337); RDW 14.1 % (12.6-16.6)
[2024-09-09 09:51] LABS: POTASSIUM 3.8 mmol/L (3.5-5.1)
[2024-09-09 10:21] LABS: ALBUMIN 3.2 g/dl (3.4-5.0); CALCIUM 9.6 mg/dL (8.5-10.1)
[2024-09-09 10:22] LABS: BLOOD UREA NITROGEN 13.2 mg/dL (7-18); MAGNESIUM 2.1 mg/dL (1.8-2.4)
[2024-09-09 10:24] LABS: CREATININE 0.9 mg/dL (0.55-1.3)
[2024-09-09 10:26] LABS: BILIRUBIN,TOTAL 0.5 mg/dL (0.2-1); TOT PROT 6.7 g/dl (6.4-8.2)
[2024-09-10 15:25] VITALS: BP 142/77; PULSE 68; RESP 20; TEMP 97.6
== END 2024-09-10 20:02 | DRG 698 ==
LOC: JER 12:39 → JERBED 15:57 → J7W 18:01
PROVIDERS: ADMIT Internal Medicine; ATTEND Physician Assistant
DX: T83.091A Other mechanical complication of indwelling urethral catheter, initial encounter (principal); E43 Unspecified severe protein-calorie malnutrition; R53.2 Functional quadriplegia; F03.911 Unspecified dementia, unspecified severity, with agitation; I69.351 Hemiplegia and hemiparesis following cerebral infarction affecting right dominant side; R64 Cachexia; I10 Essential (primary) hypertension; K21.9 Gastro-esophageal reflux disease without esophagitis; F32.9 Major depressive disorder, single episode, unspecified; N31.9 Neuromuscular dysfunction of bladder, unspecified; D50.9 Iron deficiency anemia, unspecified; G40.909 Epilepsy, unspecified, not intractable, without status epilepticus; Z68.20 Body mass index [BMI] 20.0-20.9, adult; Q54.9 Hypospadias, unspecified; N36.8 Other specified disorders of urethra; I69.320 Aphasia following cerebral infarction; Y83.8 Other surgical procedures as the cause of abnormal reaction of the patient, or of later complication, without mention of misadventure at the time of the procedure
CPT/HCPCS: 36415; 80053; 81003; 83735; 84100; 85025; 85610; 85730; 86850; 86900; 86901; 87070; 87186; 87205; 93005; 93010; 99285-25